=== PATIENT | male | born 1935 | race Caucasian/White ===

== ENCOUNTER 2020-03-22 14:50 | Inpatient (IN) | payer MEDICARE, OTHER ==
[~2020-03-22] VITALS: Ht 172.7 cm; Wt 57.1 kg
[~2020-03-22 14:50] MED LIST: DEXA6TAB6 PEG
[2020-03-22] MEDS ORDERED: methylPREDNISolone SOD SUCC PF 125 MG/2 ML VIAL. IV ONE (15:15)
[2020-03-22 15:24] LABS: BASO % 0 % (0-3); EOS % 0 % (0-3); HEMATOCRIT 23.2 % (39.0-53.0); HEMOGLOBIN 7.4 g/dL (13.0-17.5); LYMPH # 0.7 x10^3/uL (1.0-4.8); LYMPH % 6 % (24-48); MEAN CORPUSCULAR HEMOGLOBIN 32 pg (25-35); MEAN CORPUSCULAR HGB CONC 32 g/dL (31-37); MEAN CORPUSCULAR VOLUME 102 fL (79-100); MONO # 1.5 x10^3/uL (0.0-1.1); MONO % 13 % (0-9); NEUT # 9.7 x10^3/uL (1.8-7.7); NEUT % 81 % (31-73); PLATELET COUNT 89 x10^3/uL (140-400); RED BLOOD COUNT 2.28 x10^6/uL (4.30-5.70); WHITE BLOOD COUNT 11.9 x10^3/uL (4.0-11.0)
[2020-03-22] MEDS ORDERED: fentaNYL PF VIAL 100 MCG/2 ML VIAL IVP ONE ×2 (15:30→16:15)
--- NOTE | 2020-03-22 15:37 | PHYS DOC ---
General Adult EDM: Chief Complaint: SHORTNESS OF BREATH HPI: HPI: Patient is a 84 year old male who presents with here by EMS from a [facility] due to tachycardia, hypoxia, left hip pain. Patient was recently admitted to this facility on March 19, 2020 after being discharged from [facility] ICU approximately 3 days prior with Covid and hypoxia. Patient does have lung cancer. He states he did not have to wear oxygen before catching Covid. Patient is on 6 L of oxygen at 94%. Patient states at the facility has been using anywhere from 3 to 5 L of oxygen. EMS had stated that the patient was on 6 L of oxygen and only satting 89%. Patient's heart rate is 126 upon arrival. Patient speaks in short sentences due to being short of breath. He states he does not feel like he is more short of breath than usual. Patient is more concerned about his left hip pain that he states he has had since November. Patient states he is a full code and wants everything done if something were to happen to him. Patient does have a PEG tube. Patient's medical history is Covid, chronic pain, high cholesterol, diabetes. Review of Systems: Review of Systems: Constitutional: Denies fever or chills. [] Eyes: Denies change in visual acuity. [] HENT: Denies nasal congestion or sore throat. [] Respiratory: +cough or +shortness of breath. [] Cardiovascular: Denies chest pain or edema. [] GI: Denies abdominal pain, nausea, vomiting, bloody stools or diarrhea. [] : Denies dysuria. [] Musculoskeletal: Denies back pain. +left hip joint pain. [] Integument: Denies rash. [] Neurologic: Denies headache, focal weakness or sensory changes. [] Endocrine: Denies polyuria or polydipsia. [] Lymphatic: Denies swollen glands. [] Psychiatric: Denies depression or anxiety. [] Heart Score: Risk Factors: Risk Factors: DM, Current or recent (<one month) smoker, HTN, HLP, family history of CAD, obesity. Risk Scores: Score 0 - 3: 2.5% MACE over next 6 weeks - Discharge Home Score 4 - 6: 20.3% MACE over next 6 weeks - Admit for Clinical Observation Score 7 - 10: 72.7% MACE over next 6 weeks - Early Invasive Strategies Current Medications: Current Medications Medications (Trade) Dose Ordered Sig/Chaya Start Time Stop Time Status Last Admin Dose Admin Methylprednisolone Sodium Succinate (SOLU-Medrol 125MG VIAL) 80 mg 1X ONCE 03/22/20 15:15 03/22/20 15:16 UNV Physical Exam: PE: Constitutional: Well developed, mal-nourished, no acute distress, non-toxic appearance. [] HENT: Normocephalic, atraumatic, bilateral external ears normal, oropharynx moist, no oral exudates, nose normal. [] Eyes: PERRLA, EOMI, conjunctiva normal, no discharge. [] Neck: Normal range of motion, no tenderness, supple, no stridor. [] Cardiovascular:Heart rate regular rhythm, no murmur [] Lungs & Thorax: Bilateral breath sounds diminished throughout to auscultation [] Abdomen: Bowel sounds normal, soft, no tenderness, no masses, no pulsatile masses. [] Skin: Pale, warm, dry, no erythema, no rash. [] Back: No tenderness, no CVA tenderness. [] Extremities: No tenderness, no cyanosis, no clubbing, ROM intact, no edema. [] Neurologic: Alert and oriented X 3, normal motor function, normal sensory function, no focal deficits noted. [] Psychologic: Affect normal, judgement normal, mood normal. [] EKG: EK and read by Dr Lamb as Sinus Tachycardia, ventricular premature complexes and no STEMI Radiology/Procedures: Radiology/Procedures: [] Impression: [facility] [address] [place] [address] IMAGING REPORT Signed PATIENT: PANCHO CHOPRA ACCOUNT: [id number] : 1935 LOCATION: ER AGE: 84 SEX: M EXAM STATUS: REG ER ORD. PHYSICIAN: SANTIAGO AN APRN REASON: HYPOXIA PROCEDURE: PORTABLE CHEST 1V EXAM: Chest, single view. HISTORY: Hypoxia. COMPARISON: None. FINDINGS: A frontal view of the chest is obtained. There is diffuse increased interstitial opacity. There is mild elevation of the right hemidiaphragm. There is a suspected trace right pleural effusion. There is no pneumothorax. The heart is normal in size. There is a left PICC with the tip in the right atrium. IMPRESSION: 1. Diffuse interstitial infiltrate or chronic interstitial changes and suspected trace right pleural effusion. 2. Left PICC with the tip in the right atrium. Electronically signed by: Carina Nails MD (03/22/2020 3:51 PM) [id number] DICTATED and SIGNED BY: CARINA NAILS MD DATE: 03/22/20 [id number] [place] [address] IMAGING REPORT Signed PATIENT: PANCHO CHOPRA ACCOUNT: [id number] : 1935 LOCATION: ER AGE: 84 SEX: M EXAM STATUS: REG ER ORD. PHYSICIAN: SANTIAGO AN APRN REASON: PAIN PROCEDURE: HIP LEFT 2V WITH PELVIS EXAM: Pelvis and left hip, 3 views. HISTORY: Pain. COMPARISON: None. FINDINGS: A frontal view the pelvis and frontal and lateral views of the left hip are obtained. No displaced fracture is seen. There is lumbar sclerosis and degenerative change at the lower lumbar levels. There are right inguinal clips. There is gas and stool within the colon. There are vascular calcifications. The re are vascular clips within the left thigh. IMPRESSION: No acute osseous finding. Electronically signed by: Carina Nails MD (03/22/2020 3:50 PM) [email or web address] DICTATED and SIGNED BY: CARINA NAILS MD DATE: 03/22/20 [id number] [facility] [address] [place], [place] [id number] IMAGING REPORT Signed PATIENT: PANCHO CHOPRA ACCOUNT: [id number] : 1935 LOCATION: ER AGE: 84 SEX: M EXAM STATUS: REG ER ORD. PHYSICIAN: SANTIAGO AN APRN REASON: HYPOXIA, COVID, TACHYPNEA AND TACHYCARDIA PROCEDURE: CT ANGIOGRAPHY CHEST CT angiogram of the chest with contrast: Reason for examination: Hypoxia. Covid. Tachypnea and tachycardia. Helical images were obtained through the chest with intravenous administration of 100 cc Omnipaque 350 using PE protocol. 3-D MIPS reconstruction was performed in sagittal and coronal planes. Exposure: One or more of the following individualized dose reduction techniques were utilized for this examination: 1. Automated exposure control 2. A djustment of the mA and/or kV according to patient size 3. Use of iterative reconstruction technique. No abnormality seen at the thyroid gland. The trachea and mainstem bronchi show no intraluminal lesions. No abnormality seen at the esophagus. The thoracic aorta shows some arteriosclerotic vascular calcification but no aneurysmal dilatation or dissection is seen. The heart size is normal with no pericardial effusion. There is no evidence of pulmonary embolus. The lung sanders show emphysematous changes throughout both lung sanders. There are also mild patchy groundglass infiltrates bilaterally. No pneumothorax is seen. No abnormalities of seen at the visualized portions of the liver, spleen or adrenal glands. IMPRESSION: No evidence of pulmonary embolus. COPD. Diffuse mild patchy groundglass infiltrates bilaterally. Electronically signed by: Juliette Neri MD (03/22/2020 5:01 PM) [facility] DICTATED and SIGNED BY: JULIETTE NERI MD DATE: 03/22/20 [id number] Course & Med Decision Making: Course & Med Decision Making Pertinent Labs and Imaging studies reviewed. (See chart for details) COVID-19 CRITERIA: The patient was evaluated during the global COVID-19 pandemic, and that diagnosis was suspected/considered upon their initial presentation. Their evaluation, treatment and testing was consistent with current guidelines for patients who present with complaints or symptoms that may be related to COVID-19. See HPI. Alert and oriented x4. Skin is pale but warm and dry. No extremity edema. Lungs are very diminished throughout. Patient rates his left hip pain a 8 out of 10. He denies chest pain, nausea, vomiting, diarrhea, dizziness, syncope, headache, vision changes, focal weakness. Since I have nothing on the patient that tells me exactly when he was diagnosed with Covid I will do a rapid on him and a PCR. Patient is positive for Covid on a rapid screen. Patient will be admitted for hypoxia and pneumonia. [] Dragon Disclaimer: Dragon Disclaimer: This electronic medical record was generated, in whole or in part, using a voice recognition dictation system. COVID-19 Patient Risks: Age 65 or older: Yes Sign of co-morbidity: Yes Exp to person + for COVID: No Exp to PUI: Yes Travel from affected area: No Lower respiratory symptoms: Yes Fever: No Other: No PPE Use: Full PPE with N95 mask or PAPR: Yes Departure Departure Impression: Primary Impression: Hypoxia Additional Impressions: COVID-19 Pneumonia Qualified Codes: J18.9 - Pneumonia, unspecified organism Disposition: ADMITTED INPT THIS HOSP Admitting Physician: MIKAEL Condition: STABLE Referrals: BEKA MORALES DO (PCP) SANTIAGO AN LESSON INSTRUCTOR Mar 22, 2020 15:37
[2020-03-22 15:49] LABS: BASE EXCESS COOX 1 mmol/L (-3-3); HCO3 COOX 24 mmol/L (21-28); METHEMOGLOBIN 0.4 % (0.0-1.9); OXYHEMOGLOBIN 93.8 %; PCO2 COOX 33 mmHg (35-46); PO2 COOX 77 mmHg (65-108); SAT O2 COOX 95 % (92-99)
[2020-03-22 15:51] LABS: CALCIUM 8.6 mg/dL (8.5-10.1); CREATININE 0.9 mg/dL (0.7-1.3); POTASSIUM 4.4 mmol/L (3.5-5.1)
--- NOTE | 2020-03-22 15:52 | RAD ---
EXAM: Pelvis and left hip, 3 views. HISTORY: Pain. COMPARISON: None. FINDINGS: A frontal view the pelvis and frontal and lateral views of the left hip are obtained. No di splaced fracture is seen. There is lumbar sclerosis and degenerative change at the lower lumbar level s. There are right inguinal clips. There is gas and stool within the colon. There are vascular calcif ications. There are vascular clips within the left thigh. IMPRESSION: No acute osseous finding. Electronically signed by: Carina Maya MD (03/22/2020 3:50 PM) [email or web address]
--- NOTE | 2020-03-22 15:53 | RAD ---
EXAM: Chest, single view. HISTORY: Hypoxia. COMPARISON: None. FINDINGS: A frontal view of the chest is obtained. There is diffuse increased interstitial opacity. T here is mild elevation of the right hemidiaphragm. There is a suspected trace right pleural effusion. There is no pneumothorax. The heart is normal in size. There is a left PICC with the tip in the righ t atrium. IMPRESSION: 1. Diffuse interstitial infiltrate or chronic interstitial changes and suspected trace right pleural effusion. 2. Left PICC with the tip in the right atrium. Electronically signed by: Carina Maya MD (03/22/2020 3:51 PM) [email or web address]
[2020-03-22 15:55] LABS: ALBUMIN/GLOBULIN RATIO 0.6 (1.0-1.7); TOTAL BILIRUBIN 0.7 mg/dL (0.2-1.0); TOTAL PROTEIN 5.4 g/dL (6.4-8.2)
[2020-03-22 15:59] LABS: % BANDS 3 % (0-9); % BASOS 1 % (0-3); % LYMPHS 4 % (24-48); % METAS 2 % (0-0); % MONOS 12 % (0-10); % MYELOS 3 % (0-0); % SEGS 75 % (35-66); ANISOCYTOSIS MARKED; PLT ESTIMATE DECREASED (ADEQUATE); POIKILOCYTOSIS SLIGHT; POLYCHROMASIA PRESENT
[2020-03-22 16:00] LABS: OVALOCYTES FEW; SCHISTOCYTES OCC; TEAR DROP CELLS OCC
[2020-03-22] MEDS ORDERED: IV NORMAL SALINE 500ML BAG 500 ML IV ONE (16:15)
[2020-03-22] MEDS ORDERED: PIPERACILLIN/TAZOBACTAM 3.375 GM in IV NORMAL SALINE 50ML 50 ML IV ONE (16:15)
--- NOTE | 2020-03-22 16:29 | EKG ---
[facility] [address] [place] [address] Test Date: 2020-03-22 Test Time: 15:03:23 Pat Name: PANCHO CHOPRA Department: Room: Gender: M Help Desk Supervisor: : 1935 Requested By: SANTIAGO AN Order Number: [id number] Reading MD: Measurements Intervals [place] Rate: 126 P: 110 IA: 184 QRS: -38 QRSD: 72 T: 84 QT: 278 QTc: 409 Interpretive Statements SINUS TACHYCARDIA VENTRICULAR PREMATURE COMPLEX(ES) ABNORMAL LEFT AXIS DEVIATION QRS(T) CONTOUR ABNORMALITY CONSIDER ANTEROSEPTAL MYOCARDIAL DAMAGE T ABNORMALITY IN HIGH LATERAL LEADS ABNORMAL ECG RI6.02 No previous ECG available for comparison
[2020-03-22] MEDS ORDERED: IOHEXOL 350 MG/ML 100 ML VIAL. IV ONE (16:45)
[2020-03-22] MEDS ORDERED: CONTRAST GIVEN. MC PRN (16:45)
--- NOTE | 2020-03-22 17:04 | RAD ---
CT angiogram of the chest with contrast: Reason for examination: Hypoxia. Covid. Tachypnea and tachycardia. Helical images were obtained through the chest with intravenous administration of 100 cc Omnipaque 35 0 using PE protocol. 3-D MIPS reconstruction was performed in sagittal and coronal planes. Exposure: One or more of the following individualized dose reduction techniques were utilized for thi s examination: 1. Automated exposure control 2. Adjustment of the mA and/or kV according to patient size 3. Use of iterative reconstruction technique. No abnormality seen at the thyroid gland. The trachea and mainstem bronchi show no intraluminal lesio ns. No abnormality seen at the esophagus. The thoracic aorta shows some arteriosclerotic vascular dajuan cification but no aneurysmal dilatation or dissection is seen. The heart size is normal with no peric ardial effusion. There is no evidence of pulmonary embolus. The lung sanders show emphysematous change s throughout both lung sanders. There are also mild patchy groundglass infiltrates bilaterally. No pne umothorax is seen. No abnormalities of seen at the visualized portions of the liver, spleen or adrenal glands. IMPRESSION: No evidence of pulmonary embolus. COPD. Diffuse mild patchy groundglass infiltrates bilaterally. Electronically signed by: Renetta Miller MD (03/22/2020 5:01 PM) UDKE
[2020-03-22] MEDS: ACETAMINOPHEN 325 MG TABLET. PO ONE ×2 (18:30→18:40)
[2020-03-22] MEDS ORDERED: ACETAMINOPHEN 650 MG SUPP.RECT. ONE (20:04)
[2020-03-22] MEDS ORDERED: ACETAMINOPHEN 650 MG SUPP.RECT. PR ONE (20:15)
[2020-03-22 21:30] VITALS: BP 92/47
[2020-03-22 23:00] VITALS: BP 92/47
[2020-03-22] MEDS ORDERED: ACYC800T88 PEG (23:24)
[2020-03-22] MEDS ORDERED: EZET10TA20 PEG (23:24)
[2020-03-22] MEDS ORDERED: DOXA4TAB2 PEG (23:24)
[2020-03-22] MEDS ORDERED: MAGN250T10 PEG (23:24)
[2020-03-22] MEDS ORDERED: CILO100T PEG (23:24)
[2020-03-22] MEDS ORDERED: ACET500T68 PEG (23:24)
[2020-03-22] MEDS ORDERED: ONDA4TAB7 PEG (23:24)
[2020-03-22] MEDS ORDERED: METO25TA4 PEG (23:24)
[2020-03-22] MEDS ORDERED: ASPI-630 PEG (23:24)
[2020-03-22] MEDS ORDERED: SENN8.8S13 PEG (23:24)
[2020-03-22] MEDS ORDERED: ASCO500T3 PEG (23:24)
[2020-03-22] MEDS ORDERED: METH-38 PEG (23:24)
[2020-03-22] MEDS ORDERED: ALBU2.5V8 IH (23:24)
[2020-03-22] MEDS ORDERED: TRAZ-118 PEG (23:24)
[2020-03-22] MEDS ORDERED: ATOR20TA58 PEG (23:24)
[2020-03-22] MEDS ORDERED: CHOL400C PEG (23:24)
--- NOTE | 2020-03-22 23:55 | NUR ---
Patient arrived to unit at approx 2130 accompanied by MADHAV Figueredo. Patient resting comfortably on 5 L NC. Patient was discharged from on 03/19/20 to [facility] on 2-3 L NC. Patient has a G-Tube that he receives all meds and nutrition through- [facility] 1.5 3x per day with 250 Ml water flushes 5x per day. Patient gets extremely short of breath when attempting to talk, all medical history was obtained from [facility] paperwork that was sent with patient, Will follow up with patient in AM to confirm health history. Patient is COVID (+). Wound care consulted-patient has multiple wounds and bruises on extremities, Patient states that he fell out of his bed on 03/21/20 attempting to adjust his bed. Bed in low locked position, call light in reach, oriented patient to unit, reminded patient to call for assistance before ambulating. Will continue to monitor.
[2020-03-23] MEDS ORDERED: INFLUENZA VAX SCREEN BY RX. MC ONE (02:15)
[2020-03-23 02:55] VITALS: BP 109/55
--- NOTE | 2020-03-23 04:55 | NUR ---
Case management referral placed: Patient from [facility], states that he doesn't think he wants to return there, would rather be at home with his and HH if possible. Does want to be Full code and states that he doesn't think [facility] agree with him on this decision. Also states "i don't think they want me to come back there". Pt is currently getting Chemo from [facility] and his next treatment is scheduled for 04/11/20.
[2020-03-23 07:00] VITALS: BP 115/59
[2020-03-23] MEDS ORDERED: ALBUTEROL SULFATE 2.5 MG/3 ML NEBU. INH PRN (08:30)
[2020-03-23] MEDS ORDERED: FLU VACC QS 2020-21(6MOS+)/PF 0.5 ML SYRINGE. VAX IM ONE (09:00)
[2020-03-23] MEDS ORDERED: ONDANSETRON ODT 4 MG TAB.RAPDIS. PEG PRN (09:00)
--- NOTE | 2020-03-23 09:14 | HP ---
ADMIT DATE: 03/23/2020 CHIEF COMPLAINT: Shortness of breath. 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 He has a PEG tube because he also has cancer and he is scheduled to get chemotherapy again on 04/11/2020. Basically, he has had COVID-19 positive testing at his facility and he has been stable, but recently developed some hypoxia. He is now on 6 liters of oxygen. He actually was at [facility] recently as well for similar issues. He does have a history of lung cancer. Upon arrival, his oxygen saturation was 89% and his heart rate was 126. He was having a push of speech. I discussed the case with ER physician. We are going to admit the patient for COVID protocol and consult Pulmonary Medicine. I just discussed the case with Pulmonary nurse practitioner as well. PAST MEDICAL HISTORY: Lung cancer, COVID-19, arthritis, PEG tube, polypharmacy, shingles, asthma, GERD, hypertension, hyperlipidemia, BPH, insomnia. ALLERGIES: LEVAQUIN AND ADENOSINE. FAMILY HISTORY: Diabetes. 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 He does not drink, smoke or take drugs. I believe he quit smoking. MEDICATIONS: Reviewed, please refer to the MRAD. He is on 17. REVIEW OF SYSTEMS: GENERAL: No history of weight change, weakness or fevers. SKIN: No bruising, hair changes or rashes. EYES: No blurred, double or loss of vision. NOSE AND THROAT: No history of nosebleeds, hoarseness or sore throat. HEART: No history of palpitations, chest pain or shortness of breath on exertion. LUNGS: Denies cough, hemoptysis, wheezing. He complains of shortness of breath. GASTROINTESTINAL: Denies changes in appetite, nausea, vomiting, diarrhea or constipation. GENITOURINARY: No history of frequency, urgency, hesitancy or nocturia. NEUROLOGIC: Denies history of numbness, tingling, tremor or weakness. PSYCHIATRIC: No history of panic, anxiety or depression. ENDOCRINE: No history of heat or cold intolerance, polyuria or polydipsia. EXTREMITIES: Denies muscle weakness, joint pain, pain on walking or stiffness. PHYSICAL EXAMINATION: VITALS: Within normal limits and are stable. GENERAL: No apparent distress. Alert and oriented. HEENT: Normocephalic, atraumatic, external auditory canals are patent. EYES: Extraocular muscles are intact, pupils are equally round and reactive to light and accommodation. MUSCULOSKELETAL: Well developed, well nourished, good range of motion. ENDOCRINE: No thyromegaly was palpated. LYMPHATICS: No cervical chain or axillary nodes were noted. HEMATOPOIETIC: No bruising. NECK: Supple, no JVD, no thyromegaly was noted. LUNGS: He has bibasilar crackles. HEART: RRR, S1, S2 present. Peripheral pulses intact, no obvious murmurs were noted. ABDOMEN: He has a PEG tube in place. EXTREMITIES: Without any cyanosis, clubbing, or edema. Pedal pulses intact, Homans sign is negative. NEUROLOGIC: Normal speech, normal tone. A & O x 3, moves all extremities, no obvious focal deficits. PSYCHIATRIC: Normal affect, normal mood. Stable. SKIN: No ulcerations or rashes, good skin turgor, no jaundice. VASCULAR: Good capillary refill, neurovascular bundle appears to be intact. LABORATORY DATA: White count 12, hemoglobin 7.4, platelets 89. Electrolytes normal other than sodium of 135 and a BUN of 45. COVID-19 testing is positive. D-dimer is high at 1.45. ASSESSMENT AND PLAN: Respiratory failure, leukocytosis, anemia, thrombocytopenia, hyponatremia, azotemia, coagulopathy, hypoxia, and COVID-19 positive. The patient has been admitted to the Cardiac floor. We have consulted Pulmonary. I am going to go ahead and consult Hematology/Oncology and Nephrology as well. IV fluids. I have resumed his home meds, resumed his PEG feeds, COVID protocol. LONG-TERM PROGNOSIS: Guarded. CRISTOFER HARRIS DO DR: RAMIREZ/edith JOB#: [id number] / [id number]
[2020-03-23] MEDS: METHOCARBAMOL 750 MG TABLET PEG PRN (09:25)
[2020-03-23] MEDS: METOPROLOL TART IMMED RELEASE 25 MG TABLET. PEG SCH ×2 (09:25→22:06)
[2020-03-23] MEDS: MAGNESIUM OXIDE 400 MG TABLET PEG SCH ×2 (09:25→22:00)
[2020-03-23] MEDS: ASCORBIC ACID 500 MG TABLET PEG SCH ×2 (09:25→21:58)
[2020-03-23] MEDS: DOXAZOSIN MESYLATE 4 MG TABLET. PEG SCH (09:25)
[2020-03-23] MEDS: ASPIRIN CHEWABLE 81 MG TABLET. PEG SCH (09:25)
[2020-03-23] MEDS: DEXAMETHASONE 4 MG TABLET PEG SCH (09:26)
[2020-03-23] MEDS: ACYCLOVIR 200 MG CAPSULE. PEG SCH ×2 (09:26→22:01)
[2020-03-23] MEDS ORDERED: PIP/TAZO PER PHARMACY MC PRN (09:45)
--- NOTE | 2020-03-23 09:50 | CONS ---
DATE OF CONSULTATION: PULMONARY CONSULTATION ATTENDING PHYSICIAN: Dr. Hendrickson. REASON FOR CONSULTATION: Respiratory failure. HISTORY OF PRESENT ILLNESS: The patient is an 84-year-old male who has a long history of tobacco use. He has history of lung cancer and per history was diagnosed in 2007 for which he had a right lower lobectomy and had chemo. He was followed at , details of which are not available. He was brought into the hospital after he tested positive for COVID. He had some shortness of breath. He has a cough. The patient states that he is not on home oxygen. Currently, he is on 4 liters of oxygen. He has no nausea, vomiting, no diarrhea, no dysuria. No focal weakness. However, he appears to be hoarse. He had ABGs with a pH of 7.49, pCO2 of 33 and a pO2 of 77 on 40% FiO2. He had a CTA chest, which was reviewed by me. There is no evidence of pulmonary embolism. There are bilateral diffuse patchy ground-glass infiltrates. PAST MEDICAL HISTORY: History of lung cancer diagnosed in 2007. He said he had a right lower lobectomy and had chemo. Per H and P, he is also scheduled to have more chemo next month. History of PEG tube, history of COPD, hypertension, hyperlipidemia. ALLERGIES: LEVAQUIN AND ADENOSINE FAMILY HISTORY: Diabetes. 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 He does not drink. He had smoked for 30+ years. MEDICATIONS: Reviewed as listed in the MRAD. REVIEW OF SYSTEMS: Ten-point system obtained. Pertinent positives discussed in my history of present illness, otherwise noncontributory. All systems that were negative were reviewed as well. FAMILY HISTORY: Noncontributory to lungs. PHYSICAL EXAMINATION: VITAL SIGNS: Reviewed. He is afebrile, pulse ox 99% on 5 liters. NECK: Supple. LUNGS: With diminished breath sounds. CARDIOVASCULAR: With a regular rate. ABDOMEN: Soft. EXTREMITIES: With no pitting edema. LABORATORY DATA: Reviewed. BUN 45, creatinine 0.9. Albumin 2.0. D-dimer 1.45. White cell count 11.9, hemoglobin 7.4 and platelets are 89,000. IMPRESSION: 1. Acute hypoxic respiratory failure secondary to multifactorial etiologies including COVID-19 pneumonia and underlying chronic obstructive pulmonary disease. 2. History of lung cancer diagnosed in 2007 per patient's history. Treated with a right lower lobectomy and chemo. Apparently, he is also scheduled to have chemo next month at . No obvious tumor seen on the CT chest. He does have hoarseness and possibility of vocal cord paralysis is not excluded. 3. Anemia and thrombocytopenia. 4. Prerenal azotemia. 5. Severe protein-calorie malnutrition. RECOMMENDATIONS: 1. Continue present oxygen with gradual wean to keep sats 92 and above. 2. Empiric antibiotic, Zosyn. 3. Continue with steroids for COVID. 4. Bronchodilators. 5. DVT prophylaxis. 6. Discussed with RN and patient. Chart reviewed and imaging studies reviewed. KATY SALAS MD DR: KARLO/edith JOB#: [id number] / [id number]
[2020-03-23 11:00] VITALS: BP 92/43
--- NOTE | 2020-03-23 11:32 | NUR ---
SS following for discharge planning. SS reviewed pt chart and discussed with pt RN. Pt is a skilled rehabilitation resident from [facility], ; fax [phone]. COVID19 positive on 03/07/2020 per facility. COVID19 positive on most recent test. Pt is currently requiring oxygen at five liters nasal canula. Pt on IV Zosyn and has peg in place. Pt requesting to return to home with spouse and home healthcare if possible. Pt has chemotherapy appointment on 04/11/2020 at . PT/OT orders requested. SS will continue to follow for discharge planning.
[2020-03-23] MEDS: ENOXAPARIN 40 MG/0.4 ML SYRINGE. SQ SCH (11:38)
[2020-03-23] MEDS: PIPERACILLIN/TAZOBACTAM 3.375 GM in IV NORMAL SALINE 50ML 50 ML IV SCH ×2 (11:38→17:21)
--- NOTE | 2020-03-23 13:11 | PDOC2 ---
CONSULT Date of Consult Date of Consult DATE: 03/23/20 TIME: 13:02 Reason for Consult Reason for Consult: LOW NA Referring Physician Referring Physician: SUSAN Identification/Chief Complaint Chief Complaint SOB Source Source: Chart review, Patient History of Present Illness Reason for Visit: THIS IS AN 84 YR OLD WITH SOB. HX NOTABLE FOR LUNG CA WITH LOBECTOMY AND ONGOING CHEMOTHERAPY. IS NOW POS FOR COVID 19. RENAL CONSULT DUE TO A NA OF 135. CTA CHEST NEG. NO EXCESSIVE WATER INTAKE REPORTED. NOT ON ANY DIURETICS. NO EDEMA. LABS OTHERWISE NOTABLE FOR PANCYTOPENIA Past Medical History Cardiovascular: HTN, Hyperlipidemia Pulmonary: Other (SOB AND LUNG CA WITH LOBECTOMY) GI: Constipation Musculoskeletal: Weakness Renal/: No pertinent hx, Benign prostatic enlarg. Past Surgical History Past Surgical History LOBECTOMY ABOVE, Family History Family History: No Significant Social History Quit ALCOHOL: none Drugs: None Lives: with Family Current Problem List Problem List Problems Medical Problems: (1) COVID-19 Status: Acute (2) Hypoxia Status: Acute (3) Pneumonia Status: Acute Current Medications Current Medications Current Medications Methylprednisolone Sodium Succinate (SOLU-Medrol 125MG VIAL) 80 mg 1X ONCE IV Last administered on 03/22/20at 15:36; Start 03/22/20 at 15:15; Stop 03/22/20 at 15:30; Status DC Fentanyl Citrate (Fentanyl 2ml Vial) 25 mcg 1X ONCE IVP Last administered on 03/22/20at 15:36; Start 03/22/20 at 15:30; Stop 03/22/20 at 15:31; Status DC Sodium Chloride 500 ml @ 500 mls/hr 1X ONCE IV Last administered on 03/22/20at 16:23; Start 03/22/20 at 16:15; Stop 03/22/20 at 17:14; Status DC Piperacillin Sod/ Tazobactam Sod 3.375 gm/Sodium Chloride 50 ml @ 100 mls/hr 1X ONCE IV Last administered on 03/22/20at 17:08; Start 03/22/20 at 16:15; Stop 03/22/20 at 16:44; Status DC Fentanyl Citrate (Fentanyl 2ml Vial) 25 mcg 1X ONCE IVP Last administered on 03/22/20at 16:21; Start 03/22/20 at 16:15; Stop 03/22/20 at 16:16; Status DC Iohexol (Omnipaque 350 Mg/ml) 100 ml 1X ONCE IV Last administered on 03/22/20at 16:41; Start 03/22/20 at 16:45; Stop 03/22/20 at 16:46; Status DC Info (CONTRAST GIVEN -- Rx MONITORING) 1 each PRN DAILY PRN MC SEE COMMENTS; S tart 03/22/20 at 16:45; Stop 03/24/20 at 16:44 Acetaminophen (Tylenol) 650 mg 1X ONCE PO ; Start 03/22/20 at 18:30; Stop 03/22/20 at 18:31; Status DC Acetaminophen (Tylenol Supp) 650 mg STK-MED ONCE .ROUTE ; Start 03/22/20 at 20:04; Stop 03/22/20 at 20:04; Status DC Acetaminophen (Tylenol Supp) 650 mg 1X ONCE WA Last administered on 03/22/20at 20:10; Start 03/22/20 at 20:15; Stop 03/22/20 at 20:16; Status DC Info (FLU VACCINE SCREEN per RX) 1 each 1X ONCE MC ; Start 03/23/20 at 02:15; Stop 03/23/20 at 02:16; Status UNV Influenza Virus Vaccine Quadrival (Fluzone Quad Syringe) 0.5 ml ONCE ONCE VAX IM ; Start 03/23/20 at 09:00; Stop 03/23/20 at 09:01; Status DC Acetaminophen (Tylenol) 500 mg PRN Q6HRS PRN PO MILD PAIN 1-3; Start 03/23/20 at 08:30 Albuterol Sulfate (Ventolin Neb Soln) 2.5 mg PRN Q4HRS PRN INH wheezing; Start 03/23/20 at 08:30 Ascorbic Acid (Vitamin C) 500 mg BID PEG Last administered on 03/23/20at 09:25; Start 03/23/20 at 09:00 Aspirin (Aspirin Chewable) 81 mg DAILY PEG Last administered on 03/23/20at 09:25; Start 03/23/20 at 09:00 Atorvastatin Calcium (Lipitor) 20 mg HS PEG ; Start 03/23/20 at 21:00 Doxazosin Mesylate (Cardura) 4 mg DAILY PEG Last administered on 03/23/20at 09:25; Start 03/23/20 at 09:00 EZETIMIBE (Zetia) 10 mg QHS PO ; Start 03/23/20 at 21:00 Methocarbamol (Robaxin) 750 mg PRN Q4HRS PRN PEG PAIN Last administered on 03/23/20at 09:25; Start 03/23/20 at 08:30 Metoprolol Tartrate (Lopressor) 12.5 mg BID PEG Last administered on 03/23/20at 09:25; Start 03/23/20 at 09:00 Trazodone HCl (Desyrel) 25 mg HS PEG ; Start 03/23/20 at 21:00 Acyclovir (Zovirax) 800 mg Q12HR PEG Last administered on 03/23/20at 09:26; Start 03/23/20 at 10:00 Cilostazol (Pletal) 100 mg QHS PEG ; Start 03/23/20 at 21:00 Dexamethasone (Decadron) 6 mg DAILYWBKFT PEG Last administered on 03/23/20at 09:26; Start 03/23/20 at 09:00 Magnesium Oxide (Magnesium Oxide) 200 mg BID PEG Last administered on 03/23/20at 09:25; Start 03/23/20 at 09:00 Ondansetron HCl (Zofran Odt) 4 mg PRN Q4HRS PRN PEG NAUSEA/VOMITING; Start 03/23/20 at 09:00 Senna (Senna Oral Syrup) 352 mg QHS PEG ; Start 03/23/20 at 21:00 Piperacillin Sod/ Tazobactam Sod (Zosyn Per Pharmacy) 1 each PRN DAILY PRN MC SEE COMMENTS; Start 03/23/20 at 09:45 Enoxaparin Sodium (Lovenox 40mg Syringe) 40 mg Q24H SQ Last administered on 03/23/20at 11:38; Start 03/23/20 at 12:00 Piperacillin Sod/ Tazobactam Sod 3.375 gm/Sodium Chloride 50 ml @ 100 mls/hr Q6HRS IV Last administered on 03/23/20at 11:38; Start 03/23/20 at 12:00 Active Scripts Active Reported Acyclovir 800 Mg Tablet 800 Mg PEG Q12HR Zofran (Ondansetron Hcl) 4 Mg Tablet 4 Mg PEG PRN Q4HRS PRN Zetia (Ezetimibe) 10 Mg Tablet 10 Mg PEG QHS Ascorbic Acid 500 Mg Tablet Unknown Dose PEG BID Vitamin D3 (Cholecalciferol (Vitamin D3)) 10 Mcg Capsule Unknown Dose PEG DAILY Trazodone Hcl 50 Mg Tablet 25 Mg PEG HS Senna (Sennosides) 8.8 Mg/5 Ml Syrup 10 Ml PEG QHS 30 Days Robaxin-750 (Methocarbamol) 750 Mg Tablet 750 Mg PEG PRN Q4HRS PRN Metoprolol Tartrate 25 Mg Tablet 12.5 Mg PEG BID Magnesium (Magnesium Oxide) 250 Mg Tablet 250 Mg PEG BID Atorvastatin Calcium 20 Mg Tablet 20 Mg PEG HS Decadron (Dexamethasone) 6 Mg Tablet 6 Mg PEG DAILY 10 Days Cilostazol 100 Mg Tablet 100 Mg PEG QHS Cardura (Doxazosin Mesylate) 4 Mg Tablet 4 Mg PEG DAILY Aspirin 81 Mg Tab.chew 81 Mg PEG DAILY Proair Hfa Inhaler (Albuterol Sulfate) 8.5 Gm Hfa.aer.ad 2 Puff IH PRN Q4-6HRS PRN 21 Days Acetaminophen 500 Mg Tablet 500 Mg PEG PRN Q6HRS PRN Allergies Allergies: Coded Allergies: adenosine (Verified Allergy, Unknown, 03/22/20) levofloxacin (Verified Allergy, Unknown, 03/22/20) ROS General: YES: Fatigue, Malaise, Appetite PSYCHOLOGICAL ROS: YES: Anxiety Eyes: Yes Decreased vision HEENT: YES: Heacaches Respiratory: YES: Cough, Shortness of breath Gastrointestinal: Yes Constipation Genitourinary: YES Frequency Musculoskeletal: Yes Muscular Weakness Neurological: Yes Weakness Skin: Yes Dry Skin Physical Exam General: Alert, Cooperative, mild distress HEENT: Atraumatic, PERRLA Lungs: Other (DECREASE AIRFLOW) Heart: Regular rate Abdomen: Normal bowel sounds, Soft Extremities: No clubbing, No cyanosis Skin: No breakdown Neuro: Normal speech Psych/Mental Status: Mood NL, Other (FLAT AFFECT) MUSCULOSKELETAL: No joint tenderness, No deformity, No swelling Vitals VITALS Vital Signs Date Time Temp Pulse Resp B/P (MAP) Pulse Ox O2 Delivery O2 Flow Rate FiO2 03/23/20 11:00 97.4 89 22 92/43 (59) 100 Nasal Cannula 5.0 97.4 Labs Labs Laboratory Tests Test 03/22/20 14:58 03/22/20 15:50 03/22/20 16:25 White Blood Count 11.9 x10^3/uL (4.0-11.0) Red Blood Count 2.28 x10^6/uL (4.30-5.70) Hemoglobin 7.4 g/dL (13.0-17.5) Hematocrit 23.2 % (39.0-53.0) Mean Corpuscular Volume 102 fL (79-100) Mean Corpuscular Hemoglobin 32 pg (25-35) Mean Corpuscular Hemoglobin Concent 32 g/dL (31-37) Red Cell Distribution Width 30.0 % (11.5-14.5) Platelet Count 89 x10^3/uL (140-400) Neutrophils (%) (Auto) 81 % (31-73) Lymphocytes (%) (Auto) 6 % (24-48) Monocytes (%) (Auto) 13 % (0-9) Eosinophils (%) (Auto) 0 % (0-3) Basophils (%) (Auto) 0 % (0-3) Neutrophils # (Auto) 9.7 x10^3/uL (1.8-7.7) Lymphocytes # (Auto) 0.7 x10^3/uL (1.0-4.8) Monocytes # (Auto) 1.5 x10^3/uL (0.0-1.1) Eosinophils # (Auto) 0.0 x10^3/uL (0.0-0.7) Basophils # (Auto) 0.0 x10^3/uL (0.0-0.2) Segmented Neutrophils % 75 % (35-66) Band Neutrophils % 3 % (0-9) Lymphocytes % 4 % (24-48) Monocytes % 12 % (0-10) Basophils % 1 % (0-3) Metamyelocytes % 2 % (0-0) Myelocytes % 3 % (0-0) Platelet Estimate Decreased (ADEQUATE) Large Platelets Present Giant Platelets Present Polychromasia Present Poikilocytosis Slight Anisocytosis Marked Macrocytosis Slight Tear Drop Cells Occ Ovalocytes Few Schistocytes Occ D-Dimer (Sara) 1.45 ug/mlFEU (0.00-0.50) Sodium Level 135 mmol/L (136-145) Potassium Level 4.4 mmol/L (3.5-5.1) Chloride Level 102 mmol/L (98-107) Carbon Dioxide Level 25 mmol/L (21-32) Anion Gap 8 (6-14) Blood Urea Nitrogen 45 mg/dL (8-26) Creatinine 0.9 mg/dL (0.7-1.3) Estimated GFR (Cockcroft-Gault) 80.0 BUN/Creatinine Ratio 50 (6-20) Glucose Level 132 mg/dL (70-99) Lactic Acid Level 1.3 mmol/L (0.4-2.0) Calcium Level 8.6 mg/dL (8.5-10.1) Total Bilirubin 0.7 mg/dL (0.2-1.0) Aspartate Amino Transf (AST/SGOT) 37 U/L (15-37) Alanine Aminotransferase (ALT/SGPT) 59 U/L (16-63) Alkaline Phosphatase 115 U/L (46-116) Troponin I Quantitative 0.031 ng/mL (0.000-0.055) EB-Bll-Y-Type Natriuretic Peptide 1283 pg/mL (0-449) Total Protein 5.4 g/dL (6.4-8.2) Albumin 2.0 g/dL (3.4-5.0) Albumin/Globulin Ratio 0.6 (1.0-1.7) O2 Saturation 95 % (92-99) Arterial Blood pH 7.49 (7.35-7.45) Arterial Blood pCO2 at Patient Temp 33 mmHg (35-46) Arterial Blood pO2 at Patient Temp 77 mmHg (65-108) Arterial Blood HCO3 24 mmol/L (21-28) Arterial Blood Base Excess 1 mmol/L (-3-3) Oxyhemoglobin 93.8 % Methemoglobin 0.4 % (0.0-1.9) Carbon Monoxide, Quantitative 1.1 % (0.0-1.9) FiO2 40%/5lnc SARS-CoV-2 Antigen (Rapid) Positive (NEGATIVE) Laboratory Tests Test 03/22/20 14:58 03/22/20 15:50 03/22/20 16:25 White Blood Count 11.9 x10^3/uL (4.0-11.0) Red Blood Count 2.28 x10^6/uL (4.30-5.70) Hemoglobin 7.4 g/dL (13.0-17.5) Hematocrit 23.2 % (39.0-53.0) Mean Corpuscular Volume 102 fL (79-100) Mean Corpuscular Hemoglobin 32 pg (25-35) Mean Corpuscular Hemoglobin Concent 32 g/dL (31-37) Red Cell Distribution Width 30.0 % (11.5-14.5) Platelet Count 89 x10^3/uL (140-400) Neutrophils (%) (Auto) 81 % (31-73) Lymphocytes (%) (Auto) 6 % (24-48) Monocytes (%) (Auto) 13 % (0-9) Eosinophils (%) (Auto) 0 % (0-3) Basophils (%) (Auto) 0 % (0-3) Neutrophils # (Auto) 9.7 x10^3/uL (1.8-7.7) Lymphocytes # (Auto) 0.7 x10^3/uL (1.0-4.8) Monocytes # (Auto) 1.5 x10^3/uL (0.0-1.1) Eosinophils # (Auto) 0.0 x10^3/uL (0.0-0.7) Basophils # (Auto) 0.0 x10^3/uL (0.0-0.2) Segmented Neutrophils % 75 % (35-66) Band Neutrophils % 3 % (0-9) Lymphocytes % 4 % (24-48) Monocytes % 12 % (0-10) Basophils % 1 % (0-3) Metamyelocytes % 2 % (0-0) Myelocytes % 3 % (0-0) Platelet Estimate Decreased (ADEQUATE) Large Platelets Present Giant Platelets Present Polychromasia Present Poikilocytosis Slight Anisocytosis Marked Macrocytosis Slight Tear Drop Cells Occ Ovalocytes Few Schistocytes Occ D-Dimer (Sara) 1.45 ug/mlFEU (0.00-0.50) Sodium Level 135 mmol/L (136-145) Potassium Level 4.4 mmol/L (3.5-5.1) Chloride Level 102 mmol/L (98-107) Carbon Dioxide Level 25 mmol/L (21-32) Anion Gap 8 (6-14) Blood Urea Nitrogen 45 mg/dL (8-26) Creatinine 0.9 mg/dL (0.7-1.3) Estimated GFR (Cockcroft-Gault) 80.0 BUN/Creatinine Ratio 50 (6-20) Glucose Level 132 mg/dL (70-99) Lactic Acid Level 1.3 mmol/L (0.4-2.0) Calcium Level 8.6 mg/dL (8.5-10.1) Total Bilirubin 0.7 mg/dL (0.2-1.0) Aspartate Amino Transf (AST/SGOT) 37 U/L (15-37) Alanine Aminotransferase (ALT/SGPT) 59 U/L (16-63) Alkaline Phosphatase 115 U/L (46-116) Troponin I Quantitative 0.031 ng/mL (0.000-0.055) KX-Rzo-E-Type Natriuretic Peptide 1283 pg/mL (0-449) Total Protein 5.4 g/dL (6.4-8.2) Albumin 2.0 g/dL (3.4-5.0) Albumin/Globulin Ratio 0.6 (1.0-1.7) O2 Saturation 95 % (92-99) Arterial Blood pH 7.49 (7.35-7.45) Arterial Blood pCO2 at Patient Temp 33 mmHg (35-46) Arterial Blood pO2 at Patient Temp 77 mmHg (65-108) Arterial Blood HCO3 24 mmol/L (21-28) Arterial Blood Base Excess 1 mmol/L (-3-3) Oxyhemoglobin 93.8 % Methemoglobin 0.4 % (0.0-1.9) Carbon Monoxide, Quantitative 1.1 % (0.0-1.9) FiO2 40%/5lnc SARS-CoV-2 Antigen (Rapid) Positive (NEGATIVE) Images Images EXAM: Chest, single view. HISTORY: Hypoxia. COMPARISON: None. FINDINGS: A frontal view of the chest is obtained. There is diffuse increased interstitial opacity. There is mild elevation of the right hemidiaphragm. There is a suspected trace right pleural effusion. There is no pneumothorax. The heart is normal in size. There is a left PICC with the tip in the right atrium. IMPRESSION: 1. Diffuse interstitial infiltrate or chronic interstitial changes and suspected trace right pleural effusion. 2. Left PICC with the tip in the right atrium. Assessment/Plan Assessment/Plan IMP HYPONATREMIA-MOST LIKELY SIADH ELISSA-PRERENAL ACUTE HYPOXIC RESP FAILURE COVID 19 PNEUMONIA HX OF LUNG CA- S/P R LOWER LOBECTOMY AND CHEMO PANCYTOPENIA PLAN SALINE HYDRATION-LOW FLOW CHECK URINE LYTES AND OSM CHECK TSH CHECK S OSMO SUPPLEMENTAL O2 TX PER PULM WILL FOLLOW FIFI RANDOLPH MD Mar 23, 2020 13:11
[2020-03-23] MEDS: IV NORMAL SALINE 1000ML BAG 1,000 ML IV SCH (13:24)
--- NOTE | 2020-03-23 14:19 | PDOC2 ---
CONSULT Date of Consult Date of Consult DATE: 03/23/20 TIME: 14:05 Reason for Consult Reason for Consult: DLBCL on chemotherapy. Admitted with COVID-19 pneumonia Referring Physician Referring Physician: Dr. 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 Patient's medical history is pertinent for squamous cell carcinoma of the lung for which he received surgical resection and adjuvant chemotherapy in 2007. He was diagnosed with diffuse large B-cell lymphoma in December 2019 after presenting with a progressively enlarging neck mass. Core needle biopsy showed diffuse large B-cell lymphoma of non-GCB type. PET/CT on 01/11/2020 showed hypermetabolic lymph nodes in the right cervical, thoracic, abdominal lymph nodes as well as increased uptake in the lung, right adrenal gland and bone. 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 He began chemoimmunotherapy with R-CHOP with dose reduced anthracycline (50%) on 01/24/2020. He received cycle 2 of R-CHOP on 02/15/2020. He was subsequently hospitalized due to progressive generalized weakness, anemia. He was discharged and then readmitted on 03/07/2020 at [facility] due to acute respiratory failure due to COVID-19 pneumonia. He developed severe hypoxemia requiring up to 12 L of supplemental oxygen. Had a brief stay in the intensive care unit and after clinical improvement, he was discharged to longterm facility on 03/19/2020. Patient was found to have hypoxemia at longterm facility and was transferred to [facility] for further evaluation and management. Repeat COVID-19 test returned positive. He has been seen by pulmonology. Oncology consultation has been sought due to the patient's known history of lymphoma. Patient was awake, alert at the time of my visit. He reported significant shortness of breath, generalized weakness and cough. Past Medical History Cardiovascular: HTN, Hyperlipidemia Pulmonary: Other (SOB AND LUNG CA WITH LOBECTOMY) GI: Constipation Musculoskeletal: Weakness Renal/: No pertinent hx, Benign prostatic enlarg. Family History Family History: No Significant Social History Quit ALCOHOL: none Drugs: None Lives: with Family Current Problem List Problem List Problems Medical Problems: (1) COVID-19 Status: Acute (2) Hypoxia Status: Acute (3) Pneumonia Status: Acute Current Medications Current Medications Current Medications Methylprednisolone Sodium Succinate (SOLU-Medrol 125MG VIAL) 80 mg 1X ONCE IV Last administered on 03/22/20at 15:36; Start 03/22/20 at 15:15; Stop 03/22/20 at 15:30; Status DC Fentanyl Citrate (Fentanyl 2ml Vial) 25 mcg 1X ONCE IVP Last administered on 03/22/20at 15:36; Start 03/22/20 at 15:30; Stop 03/22/20 at 15:31; Status DC Sodium Chloride 500 ml @ 500 mls/hr 1X ONCE IV Last administered on 03/22/20at 16:23; Start 03/22/20 at 16:15; Stop 03/22/20 at 17:14; Status DC Piperacillin Sod/ Tazobactam Sod 3.375 gm/Sodium Chloride 50 ml @ 100 mls/hr 1X ONCE IV Last administered on 03/22/20at 17:08; Start 03/22/20 at 16:15; Stop 03/22/20 at 16:44; Status DC Fentanyl Citrate (Fentanyl 2ml Vial) 25 mcg 1X ONCE IVP Last administered on 03/22/20at 16:21; Start 03/22/20 at 16:15; Stop 03/22/20 at 16:16; Status DC Iohexol (Omnipaque 350 Mg/ml) 100 ml 1X ONCE IV Last administered on 03/22/20at 16:41; Start 03/22/20 at 16:45; Stop 03/22/20 at 16:46; Status DC Info (CONTRAST GIVEN -- Rx MONITORING) 1 each PRN DAILY PRN MC SEE COMMENTS; Start 03/22/20 at 16:45; Stop 03/24/20 at 16:44 Acetaminophen (Tylenol) 650 mg 1X ONCE PO ; Start 03/22/20 at 18:30; Stop 03/22/20 at 18:31; Status DC Acetaminophen (Tylenol Supp) 650 mg STK-MED ONCE .ROUTE ; Start 03/22/20 at 20:04; Stop 03/22/20 at 20:04; Status DC Acetaminophen (Tylenol Supp) 650 mg 1X ONCE HI Last administered on 03/22/20at 20:10; Start 03/22/20 at 20:15; Stop 03/22/20 at 20:16; Status DC Info (FLU VACCINE SCREEN per RX) 1 each 1X ONCE MC ; Start 03/23/20 at 02:15; Stop 03/23/20 at 02:16; Status UNV Influenza Virus Vaccine Quadrival (Fluzone Quad Syringe) 0.5 ml ONCE ONCE VAX IM ; Start 03/23/20 at 09:00; Stop 03/23/20 at 09:01; Status DC Acetaminophen (Tylenol) 500 mg PRN Q6HRS PRN PO MILD PAIN 1-3; Start 03/23/20 at 08:30 Albuterol Sulfate (Ventolin Neb Soln) 2.5 mg PRN Q4HRS PRN INH wheezing; Start 03/23/20 at 08:30 Ascorbic Acid (Vitamin C) 500 mg BID PEG Last administered on 03/23/20at 09:25; Start 03/23/20 at 09:00 Aspirin (Aspirin Chewable) 81 mg DAILY PEG Last administered on 03/23/20at 09:25; Start 03/23/20 at 09:00 Atorvastatin Calcium (Lipitor) 20 mg HS PEG ; Start 03/23/20 at 21:00 Doxazosin Mesylate (Cardura) 4 mg DAILY PEG Last administered on 03/23/20at 09:25; Start 03/23/20 at 09:00 EZETIMIBE (Zetia) 10 mg QHS PO ; Start 03/23/20 at 21:00 Methocarbamol (Robaxin) 750 mg PRN Q4HRS PRN PEG PAIN Last administered on 03/23/20at 09:25; Start 03/23/20 at 08:30 Metoprolol Tartrate (Lopressor) 12.5 mg BID PEG Last administered on 03/23/20at 09:25; Start 03/23/20 at 09:00 Trazodone HCl (Desyrel) 25 mg HS PEG ; Start 03/23/20 at 21:00 Acyclovir (Zovirax) 800 mg Q12HR PEG Last administered on 03/23/20at 09:26; Start 03/23/20 at 10:00 Cilostazol (Pletal) 100 mg QHS PEG ; Start 03/23/20 at 21:00 Dexamethasone (Decadron) 6 mg DAILYWBKFT PEG Last administered on 03/23/20at 09:26; Start 03/23/20 at 09:00 Magnesium Oxide (Magnesium Oxide) 200 mg BID PEG Last administered on 03/23/20at 09:25; Start 03/23/20 at 09:00 Ondansetron HCl (Zofran Odt) 4 mg PRN Q4HRS PRN PEG NAUSEA/VOMITING; Start 03/23/20 at 09:00 Senna (Senna Oral Syrup) 352 mg QHS PEG ; Start 03/23/20 at 21:00 Piperacillin Sod/ Tazobactam Sod (Zosyn Per Pharmacy) 1 each PRN DAILY PRN MC SEE COMMENTS; Start 03/23/20 at 09:45 Enoxaparin Sodium (Lovenox 40mg Syringe) 40 mg Q24H SQ Last administered on 03/23/20at 11:38; Start 03/23/20 at 12:00 Piperacillin Sod/ Tazobactam Sod 3.375 gm/Sodium Chloride 50 ml @ 100 mls/hr Q6HRS IV Last administered on 03/23/20at 11:38; Start 03/23/20 at 12:00 Sodium Chloride 1,000 ml @ 60 mls/hr [id number] IV Last administered on 03/23/20at 13:24; Start 03/23/20 at 13:30 Active Scripts Active Reported Acyclovir 800 Mg Tablet 800 Mg PEG Q12HR Zofran (Ondansetron Hcl) 4 Mg Tablet 4 Mg PEG PRN Q4HRS PRN Zetia (Ezetimibe) 10 Mg Tablet 10 Mg PEG QHS Ascorbic Acid 500 Mg Tablet Unknown Dose PEG BID Vitamin D3 (Cholecalciferol (Vitamin D3)) 10 Mcg Capsule Unknown Dose PEG DAILY Trazodone Hcl 50 Mg Tablet 25 Mg PEG HS Senna (Sennosides) 8.8 Mg/5 Ml Syrup 10 Ml PEG QHS 30 Days Robaxin-750 (Methocarbamol) 750 Mg Tablet 750 Mg PEG PRN Q4HRS PRN Metoprolol Tartrate 25 Mg Tablet 12.5 Mg PEG BID Magnesium (Magnesium Oxide) 250 Mg Tablet 250 Mg PEG BID Atorvastatin Calcium 20 Mg Tablet 20 Mg PEG HS Decadron (Dexamethasone) 6 Mg Tablet 6 Mg PEG DAILY 10 Days Cilostazol 100 Mg Tablet 100 Mg PEG QHS Cardura (Doxazosin Mesylate) 4 Mg Tablet 4 Mg PEG DAILY Aspirin 81 Mg Tab.chew 81 Mg PEG DAILY Proair Hfa Inhaler (Albuterol Sulfate) 8.5 Gm Hfa.aer.ad 2 Puff IH PRN Q4-6HRS PRN 21 Days Acetaminophen 500 Mg Tablet 500 Mg PEG PRN Q6HRS PRN Allergies Allergies: Coded Allergies: adenosine (Verified Allergy, Unknown, 03/22/20) levofloxacin (Verified Allergy, Unknown, 03/22/20) ROS General: YES: Fatigue PSYCHOLOGICAL ROS: No: Hallucinations, Irritablity Eyes: No Eye Pain, No Itchy Eyes HEENT: No: Oral lesions ALLERGY AND IMMUNOLOGY: YES: Nasal Congestion, Post Nasal Drip Hematological and Lymphatic: YES: Night Sweats ENDOCRINE: YES: Malaise/lethargy Respiratory: YES: Cough, Pleuritic Pain, Shortness of breath Cardiovascular: yes Chest Pain; No Edema Gastrointestinal: No Nausea, No Vomiting Genitourinary: No Dysuria, No Frequency Musculoskeletal: No Gait Disturbance, No Joint Pain Neurological: No Behavorial Changes, No Bowel/Bladder ControlChng Skin: No Dry Skin, No Eczema Physical Exam General: Alert, Oriented X3 HEENT: PERRLA Lungs: Clear to auscultation Heart: Regular rate Abdomen: Soft Extremities: No clubbing Skin: No rashes Neuro: Normal speech Psych/Mental Status: Mental status NL MUSCULOSKELETAL: No joint tenderness Vitals VITALS Vital Signs Date Time Temp Pulse Resp B/P (MAP) Pulse Ox O2 Delivery O2 Flow Rate FiO2 03/23/20 11:00 97.4 89 22 92/43 (59) 100 Nasal Cannula 5.0 97.4 Labs Labs Laboratory Tests Test 03/22/20 14:58 03/22/20 15:50 03/22/20 16:25 White Blood Count 11.9 x10^3/uL (4.0-11.0) Red Blood Count 2.28 x10^6/uL (4.30-5.70) Hemoglobin 7.4 g/dL (13.0-17.5) Hematocrit 23.2 % (39.0-53.0) Mean Corpuscular Volume 102 fL (79-100) Mean Corpuscular Hemoglobin 32 pg (25-35) Mean Corpuscular Hemoglobin Concent 32 g/dL (31-37) Red Cell Distribution Width 30.0 % (11.5-14.5) Platelet Count 89 x10^3/uL (140-400) Neutrophils (%) (Auto) 81 % (31-73) Lymphocytes (%) (Auto) 6 % (24-48) Monocytes (%) (Auto) 13 % (0-9) Eosinophils (%) (Auto) 0 % (0-3) Basophils (%) (Auto) 0 % (0-3) Neutrophils # (Auto) 9.7 x10^3/uL (1.8-7.7) Lymphocytes # (Auto) 0.7 x10^3/uL (1.0-4.8) Monocytes # (Auto) 1.5 x10^3/uL (0.0-1.1) Eosinophils # (Auto) 0.0 x10^3/uL (0.0-0.7) Basophils # (Auto) 0.0 x10^3/uL (0.0-0.2) Segmented Neutrophils % 75 % (35-66) Band Neutrophils % 3 % (0-9) Lymphocytes % 4 % (24-48) Monocytes % 12 % (0-10) Basophils % 1 % (0-3) Metamyelocytes % 2 % (0-0) Myelocytes % 3 % (0-0) Platelet Estimate Decreased (ADEQUATE) Large Platelets Present Giant Platelets Present Polychromasia Present Poikilocytosis Slight Anisocytosis Marked Macrocytosis Slight Tear Drop Cells Occ Ovalocytes Few Schistocytes Occ D-Dimer (Sara) 1.45 ug/mlFEU (0.00-0.50) Sodium Level 135 mmol/L (136-145) Potassium Level 4.4 mmol/L (3.5-5.1) Chloride Level 102 mmol/L (98-107) Carbon Dioxide Level 25 mmol/L (21-32) Anion Gap 8 (6-14) Blood Urea Nitrogen 45 mg/dL (8-26) Creatinine 0.9 mg/dL (0.7-1.3) Estimated GFR (Cockcroft-Gault) 80.0 BUN/Creatinine Ratio 50 (6-20) Glucose Level 132 mg/dL (70-99) Lactic Acid Level 1.3 mmol/L (0.4-2.0) Calcium Level 8.6 mg/dL (8.5-10.1) Total Bilirubin 0.7 mg/dL (0.2-1.0) Aspartate Amino Transf (AST/SGOT) 37 U/L (15-37) Alanine Aminotransferase (ALT/SGPT) 59 U/L (16-63) Alkaline Phosphatase 115 U/L (46-116) Troponin I Quantitative 0.031 ng/mL (0.000-0.055) RR-Sia-J-Type Natriuretic Peptide 1283 pg/mL (0-449) Total Protein 5.4 g/dL (6.4-8.2) Albumin 2.0 g/dL (3.4-5.0) Albumin/Globulin Ratio 0.6 (1.0-1.7) O2 Saturation 95 % (92-99) Arterial Blood pH 7.49 (7.35-7.45) Arterial Blood pCO2 at Patient Temp 33 mmHg (35-46) Arterial Blood pO2 at Patient Temp 77 mmHg (65-108) Arterial Blood HCO3 24 mmol/L (21-28) Arterial Blood Base Excess 1 mmol/L (-3-3) Oxyhemoglobin 93.8 % Methemoglobin 0.4 % (0.0-1.9) Carbon Monoxide, Quantitative 1.1 % (0.0-1.9) FiO2 40%/5lnc SARS-CoV-2 Antigen (Rapid) Positive (NEGATIVE) Laboratory Tests Test 03/22/20 14:58 03/22/20 15:50 03/22/20 16:25 White Blood Count 11.9 x10^3/uL (4.0-11.0) Red Blood Count 2.28 x10^6/uL (4.30-5.70) Hemoglobin 7.4 g/dL (13.0-17.5) Hematocrit 23.2 % (39.0-53.0) Mean Corpuscular Volume 102 fL (79-100) Mean Corpuscular Hemoglobin 32 pg (25-35) Mean Corpuscular Hemoglobin Concent 32 g/dL (31-37) Red Cell Distribution Width 30.0 % (11.5-14.5) Platelet Count 89 x10^3/uL (140-400) Neutrophils (%) (Auto) 81 % (31-73) Lymphocytes (%) (Auto) 6 % (24-48) Monocytes (%) (Auto) 13 % (0-9) Eosinophils (%) (Auto) 0 % (0-3) Basophils (%) (Auto) 0 % (0-3) Neutrophils # (Auto) 9.7 x10^3/uL (1.8-7.7) Lymphocytes # (Auto) 0.7 x10^3/uL (1.0-4.8) Monocytes # (Auto) 1.5 x10^3/uL (0.0-1.1) Eosinophils # (Auto) 0.0 x10^3/uL (0.0-0.7) Basophils # (Auto) 0.0 x10^3/uL (0.0-0.2) Segmented Neutrophils % 75 % (35-66) Band Neutrophils % 3 % (0-9) Lymphocytes % 4 % (24-48) Monocytes % 12 % (0-10) Basophils % 1 % (0-3) Metamyelocytes % 2 % (0-0) Myelocytes % 3 % (0-0) Platelet Estimate Decreased (ADEQUATE) Large Platelets Present Giant Platelets Present Polychromasia Present Poikilocytosis Slight Anisocytosis Marked Macrocytosis Slight Tear Drop Cells Occ Ovalocytes Few Schistocytes Occ D-Dimer (Sara) 1.45 ug/mlFEU (0.00-0.50) Sodium Level 135 mmol/L (136-145) Potassium Level 4.4 mmol/L (3.5-5.1) Chloride Level 102 mmol/L (98-107) Carbon Dioxide Level 25 mmol/L (21-32) Anion Gap 8 (6-14) Blood Urea Nitrogen 45 mg/dL (8-26) Creatinine 0.9 mg/dL (0.7-1.3) Estimated GFR (Cockcroft-Gault) 80.0 BUN/Creatinine Ratio 50 (6-20) Glucose Level 132 mg/dL (70-99) Lactic Acid Level 1.3 mmol/L (0.4-2.0) Calcium Level 8.6 mg/dL (8.5-10.1) Total Bilirubin 0.7 mg/dL (0.2-1.0) Aspartate Amino Transf (AST/SGOT) 37 U/L (15-37) Alanine Aminotransferase (ALT/SGPT) 59 U/L (16-63) Alkaline Phosphatase 115 U/L (46-116) Troponin I Quantitative 0.031 ng/mL (0.000-0.055) GE-Xxg-C-Type Natriuretic Peptide 1283 pg/mL (0-449) Total Protein 5.4 g/dL (6.4-8.2) Albumin 2.0 g/dL (3.4-5.0) Albumin/Globulin Ratio 0.6 (1.0-1.7) O2 Saturation 95 % (92-99) Arterial Blood pH 7.49 (7.35-7.45) Arterial Blood pCO2 at Patient Temp 33 mmHg (35-46) Arterial Blood pO2 at Patient Temp 77 mmHg (65-108) Arterial Blood HCO3 24 mmol/L (21-28) Arterial Blood Base Excess 1 mmol/L (-3-3) Oxyhemoglobin 93.8 % Methemoglobin 0.4 % (0.0-1.9) Carbon Monoxide, Quantitative 1.1 % (0.0-1.9) FiO2 40%/5lnc SARS-CoV-2 Antigen (Rapid) Positive (NEGATIVE) Assessment/Plan Assessment/Plan Assessment: Diffuse large B-cell lymphoma, stage IV, non-GCB subtype, s/p 2 cycles of R- CHOP, last treated on 02/15/2020 Acute hypoxic respiratory failure COVID-19 pneumonia Pancytopenia, multifactorial: Secondary to chronic disease, antineoplastic chemotherapy, diffuse large B-cell lymphoma History of lung cancer Recommendations: -Continue supportive care for COVID-19 pneumonia -Steroids and antibiotics per pulmonology service -Would not recommend additional chemotherapy at this time given his clinical status -We will continue to follow during hospital stay -Given significant decline in his health over the past few weeks in the setting of unknown aggressive DLBCL, may consider hospice if clinical status does not improve significantly. -Rest per primary service Quinn Oliveira MD Medical Oncology/Hematology Ph: [phone] DELIO OLIVEIRA MD Mar 23, 2020 14:19
[2020-03-23 15:00] VITALS: BP 98/50
--- NOTE | 2020-03-23 15:35 | NUR ---
Wound Care Wound Type/Assessment: Consult to eval and treat for multiple wounds present on admission. L heel red and blanchable. R elbow skin tear margins have dried blood, wound bed bright red without slough. L ear has dry intact scabs. R ear crease has ST II with DTI, pink wound bed with pink and purple margins. Sacrum is intact with large area of blanchable redness and a small STII with DTI observed in intergluteal cleft. Wound bed pink, with dry peeling margins. No other open areas noted on head to toe assessment. Treatment Recommendations/Plan: L heel foam for protection. R elbow: Cleanse and dry. Cover with xeroform and foam. Change every 2-3 days Sacrum: Cleanse and pat dry. Cover open wound with small piece of xeroform, and cover entire reddened area with sacral foam dressing. Change every 2-3 days. L and R ears: Ensure foam on O2 tubing is in the correct position. Apply skin prep daily. Education provided: Turn often to prevent skin breakdown. Offloading surface/device: P500 bed. Pt declined heel medix boots d/t reduced independence with mobility. Recommended Referrals/Tests: NA Discharge Recommendations for dressings: as above
[2020-03-23 19:50] VITALS: BP 98/50
[2020-03-23] MEDS: SENNA LEAF EXTRACT 528 MG/15 ML ORAL SYRUP. PEG SCH (21:00)
[2020-03-23] MEDS: CILOSTAZOL 50 MG TABLET. PEG SCH (21:58)
[2020-03-23] MEDS: ATORVASTATIN CALCIUM 20 MG TABLET PEG SCH (21:59)
[2020-03-23] MEDS: traZODone 50 MG TABLET. PEG SCH (21:59)
[2020-03-23] MEDS: EZETIMIBE 10 MG TABLET. PO SCH (21:59)
[2020-03-23 22:15] VITALS: BP 111/57
[2020-03-24] MEDS: PIPERACILLIN/TAZOBACTAM 3.375 GM in IV NORMAL SALINE 50ML 50 ML IV SCH ×5 (00:07→23:34)
[2020-03-24 03:45] VITALS: BP 103/40
[2020-03-24] MEDS: IV NORMAL SALINE 1000ML BAG 1,000 ML IV SCH (05:07)
[2020-03-24 07:00] VITALS: BP 114/53
[2020-03-24 07:41] LABS: CALCIUM 8.8 mg/dL (8.5-10.1); CREATININE 0.8 mg/dL (0.7-1.3); GFR 91.7; MAGNESIUM 2.2 mg/dL (1.8-2.4); PHOSPHORUS 3.1 mg/dL (2.6-4.7); POTASSIUM 3.9 mmol/L (3.5-5.1)
[2020-03-24] MEDS: ASCORBIC ACID 500 MG TABLET PEG SCH ×2 (08:57→20:21)
[2020-03-24] MEDS: DEXAMETHASONE 4 MG TABLET PEG SCH (08:57)
[2020-03-24] MEDS: ACYCLOVIR 200 MG CAPSULE. PEG SCH ×2 (08:57→20:22)
[2020-03-24] MEDS: DOXAZOSIN MESYLATE 4 MG TABLET. PEG SCH (08:57)
[2020-03-24] MEDS: ASPIRIN CHEWABLE 81 MG TABLET. PEG SCH (08:57)
[2020-03-24] MEDS: METOPROLOL TART IMMED RELEASE 25 MG TABLET. PEG SCH ×2 (08:58→22:38)
[2020-03-24] MEDS: MAGNESIUM OXIDE 400 MG TABLET PEG SCH ×2 (08:58→20:22)
[2020-03-24] MEDS: METHOCARBAMOL 750 MG TABLET PEG PRN (08:58)
--- NOTE | 2020-03-24 10:40 | PDOC ---
PULMONARY PROGRESS NOTES DATE: 03/24/20 TIME: 10:36 Subjective Patient is resting on 5 L nasal cannula Reports chills and cough Denies shortness of breath Vitals Vital Signs Date Time Temp Pulse Resp B/P (MAP) Pulse Ox O2 Delivery O2 Flow Rate FiO2 03/24/20 08:58 83 114/53 03/24/20 08:00 Nasal Cannula 5.0 03/24/20 07:00 96.8 18 96 96.8 Comments Patient is seen during COVID- pandemic, visual exam performed On nasal cannula oxygen Regular rate and rhythm No obvious edema or rash No respiratory distress Labs Laboratory Tests Test 03/22/20 14:58 03/22/20 15:50 03/22/20 16:25 03/24/20 06:52 White Blood Count 11.9 x10^3/uL (4.0-11.0) Red Blood Count 2.28 x10^6/uL (4.30-5.70) Hemoglobin 7.4 g/dL (13.0-17.5) Hematocrit 23.2 % (39.0-53.0) Mean Corpuscular Volume 102 fL (79-100) Mean Corpuscular Hemoglobin 32 pg (25-35) Mean Corpuscular Hemoglobin Concent 32 g/dL (31-37) Red Cell Distribution Width 30.0 % (11.5-14.5) Platelet Count 89 x10^3/uL (140-400) Neutrophils (%) (Auto) 81 % (31-73) Lymphocytes (%) (Auto) 6 % (24-48) Monocytes (%) (Auto) 13 % (0-9) Eosinophils (%) (Auto) 0 % (0-3) Basophils (%) (Auto) 0 % (0-3) Neutrophils # (Auto) 9.7 x10^3/uL (1.8-7.7) Lymphocytes # (Auto) 0.7 x10^3/uL (1.0-4.8) Monocytes # (Auto) 1.5 x10^3/uL (0.0-1.1) Eosinophils # (Auto) 0.0 x10^3/uL (0.0-0.7) Basophils # (Auto) 0.0 x10^3/uL (0.0-0.2) Segmented Neutrophils % 75 % (35-66) Band Neutrophils % 3 % (0-9) Lymphocytes % 4 % (24-48) Monocytes % 12 % (0-10) Basophils % 1 % (0-3) Metamyelocytes % 2 % (0-0) Myelocytes % 3 % (0-0) Platelet Estimate Decreased (ADEQUATE) Large Platelets Present Giant Platelets Present Polychromasia Present Poikilocytosis Slight Anisocytosis Marked Macrocytosis Slight Tear Drop Cells Occ Ovalocytes Few Schistocytes Occ D-Dimer (Sara) 1.45 ug/mlFEU (0.00-0.50) Sodium Level 135 mmol/L (136-145) 140 mmol/L (136-145) Potassium Level 4.4 mmol/L (3.5-5.1) 3.9 mmol/L (3.5-5.1) Chloride Level 102 mmol/L (98-107) 108 mmol/L (98-107) Carbon Dioxide Level 25 mmol/L (21-32) 26 mmol/L (21-32) Anion Gap 8 (6-14) 6 (6-14) Blood Urea Nitrogen 45 mg/dL (8-26) 31 mg/dL (8-26) Creatinine 0.9 mg/dL (0.7-1.3) 0.8 mg/dL (0.7-1.3) Estimated GFR (Cockcroft-Gault) 80.0 91.7 BUN/Creatinine Ratio 50 (6-20) Glucose Level 132 mg/dL (70-99) 80 mg/dL (70-99) Lactic Acid Level 1.3 mmol/L (0.4-2.0) Calcium Level 8.6 mg/dL (8.5-10.1) 8.8 mg/dL (8.5-10.1) Total Bilirubin 0.7 mg/dL (0.2-1.0) Aspartate Amino Transf (AST/SGOT) 37 U/L (15-37) Alanine Aminotransferase (ALT/SGPT) 59 U/L (16-63) Alkaline Phosphatase 115 U/L (46-116) Troponin I Quantitative 0.031 ng/mL (0.000-0.055) AQ-Ilq-W-Type Natriuretic Peptide 1283 pg/mL (0-449) Total Protein 5.4 g/dL (6.4-8.2) Albumin 2.0 g/dL (3.4-5.0) Albumin/Globulin Ratio 0.6 (1.0-1.7) O2 Saturation 95 % (92-99) Arterial Blood pH 7.49 (7.35-7.45) Arterial Blood pCO2 at Patient Temp 33 mmHg (35-46) Arterial Blood pO2 at Patient Temp 77 mmHg (65-108) Arterial Blood HCO3 24 mmol/L (21-28) Arterial Blood Base Excess 1 mmol/L (-3-3) Oxyhemoglobin 93.8 % Methemoglobin 0.4 % (0.0-1.9) Carbon Monoxide, Quantitative 1.1 % (0.0-1.9) FiO2 40%/5lnc SARS-CoV-2 Antigen (Rapid) Positive (NEGATIVE) Phosphorus Level 3.1 mg/dL (2.6-4.7) Magnesium Level 2.2 mg/dL (1.8-2.4) Laboratory Tests Test 03/24/20 06:52 Sodium Level 140 mmol/L (136-145) Potassium Level 3.9 mmol/L (3.5-5.1) Chloride Level 108 mmol/L (98-107) Carbon Dioxide Level 26 mmol/L (21-32) Anion Gap 6 (6-14) Blood Urea Nitrogen 31 mg/dL (8-26) Creatinine 0.8 mg/dL (0.7-1.3) Estimated GFR (Cockcroft-Gault) 91.7 Glucose Level 80 mg/dL (70-99) Calcium Level 8.8 mg/dL (8.5-10.1) Phosphorus Level 3.1 mg/dL (2.6-4.7) Magnesium Level 2.2 mg/dL (1.8-2.4) Medications Active Scripts Medications Dose Route/Sig Max Daily Dose Days Date Category Acyclovir 800 Mg Tablet 800 Mg PEG Q12HR 03/22/20 Reported Zofran (Ondansetron Hcl) 4 Mg Tablet 4 Mg PEG PRN Q4HRS PRN 03/22/20 Reported Zetia (Ezetimibe) 10 Mg Tablet 10 Mg PEG QHS 03/22/20 Reported Ascorbic Acid 500 Mg Tablet Unknown Dose PEG BID 03/22/20 Reported Vitamin D3 (Cholecalciferol (Vitamin D3)) 10 Mcg Capsule Unknown Dose PEG DAILY 03/22/20 Reported Trazodone Hcl 50 Mg Tablet 25 Mg PEG HS 03/22/20 Reported Senna (Sennosides) 8.8 Mg/5 Ml Syrup 10 Ml PEG QHS 30 03/22/20 Reported Robaxin-750 (Methocarbamol) 750 Mg Tablet 750 Mg PEG PRN Q4HRS PRN 03/22/20 Reported Metoprolol Tartrate 25 Mg Tablet 12.5 Mg PEG BID 03/22/20 Reported Magnesium (Magnesium Oxide) 250 Mg Tablet 250 Mg PEG BID 03/22/20 Reported Atorvastatin Calcium 20 Mg Tablet 20 Mg PEG HS 03/22/20 Reported Decadron (Dexamethasone) 6 Mg Tablet 6 Mg PEG DAILY 10 03/22/20 Reported Cilostazol 100 Mg Tablet 100 Mg PEG QHS 03/22/20 Reported Cardura (Doxazosin Mesylate) 4 Mg Tablet 4 Mg PEG DAILY 03/22/20 Reported Aspirin 81 Mg Tab.chew 81 Mg PEG DAILY 03/22/20 Reported Proair Hfa Inhaler (Albuterol Sulfate) 8.5 Gm Hfa.aer.ad 2 Puff IH PRN Q4-6HRS PRN 21 03/22/20 Reported Acetaminophen 500 Mg Tablet 500 Mg PEG PRN Q6HRS PRN 03/22/20 Reported Comments CTA IMPRESSION: No evidence of pulmonary embolus. COPD. Diffuse mild patchy groundglass infiltrates bilaterally. Impression . IMPRESSION: 1. Acute hypoxic respiratory failure secondary to multifactorial etiologies including COVID-19 pneumonia and underlying chronic obstructive pulmonary disease. 2. History of lung cancer diagnosed in 2007 per patient's history. Treated with a right lower lobectomy and chemo. Apparently, he is also scheduled to have chemo next month at . No obvious tumor seen on the CT chest. He does have hoarseness and possibility of vocal cord paralysis is not excluded. 3. Anemia and thrombocytopenia. 4. Prerenal azotemia. 5. Severe protein-calorie malnutrition. Plan . RECOMMENDATIONS: 1. Continue present oxygen with gradual wean to keep sats 92 and above. 2. Empiric antibiotic, Zosyn. 3. Continue with steroids for COVID, will need full 10-day course 4. Bronchodilators. 5. DVT prophylaxis. 6. Symptomatic treatment of cough Discussed with KATY LEMOS MD Mar 24, 2020 10:40
[2020-03-24 11:00] VITALS: BP 95/42
[2020-03-24] MEDS: ENOXAPARIN 40 MG/0.4 ML SYRINGE. SQ SCH (11:13)
--- NOTE | 2020-03-24 11:18 | PDOC ---
[employer] PROGRESS NOTE Date of Service DOS: DATE: 03/24/20 TIME: 11:14 Chief Complaint Chief Complaint CC: Shortness of breath History of Present Illness History of Present Illness 03/24/2020 -Patient seen and examined -WILEY RN -Chart reviewed Vitals/I&O Vitals/I&O: Vital Signs Date Time Temp Pulse Resp B/P (MAP) Pulse Ox O2 Delivery O2 Flow Rate FiO2 03/24/20 08:58 83 114/53 03/24/20 08:00 Nasal Cannula 5.0 03/24/20 07:00 96.8 18 96 96.8 I & O 03/23/20 03/23/20 03/24/20 15:00 23:00 07:00 Intake Total 0 ml 210 ml 0 ml Balance 0 ml 210 ml 0 ml Physical Exam General: Alert, Oriented X3 Heart: Regular rate Lungs: Clear Abdomen: Normal bowel sounds, Soft, No tenderness, No hepatosplenomegaly Extremities: No clubbing, No cyanosis, No edema Skin: No rashes, No significant lesion Labs Labs: Laboratory Tests Test 03/24/20 06:52 Sodium Level 140 mmol/L (136-145) Potassium Level 3.9 mmol/L (3.5-5.1) Chloride Level 108 mmol/L (98-107) Carbon Dioxide Level 26 mmol/L (21-32) Anion Gap 6 (6-14) Blood Urea Nitrogen 31 mg/dL (8-26) Creatinine 0.8 mg/dL (0.7-1.3) Estimated GFR (Cockcroft-Gault) 91.7 Glucose Level 80 mg/dL (70-99) Calcium Level 8.8 mg/dL (8.5-10.1) Phosphorus Level 3.1 mg/dL (2.6-4.7) Magnesium Level 2.2 mg/dL (1.8-2.4) Review of Systems Review of Systems: No clubbing, no ecchymosis Assessment and Plan Assessmemt and Plan Problems Medical Problems: (1) COVID-19 Status: Acute (2) Hypoxia Status: Acute (3) Pneumonia Status: Acute 03/24/2020 A: COVID + Hypoxia Pneumonia P: COVID protocol 5L O2 IV Zosyn Not using remdesivir, as this was already given at DVT prophylaxis Home meds Comment Review of Relevant I have reviewed the following items stephie (where applicable) has been applied. Medications: Current Medications Medications (Trade) Dose Ordered Sig/Chaya Route PRN Reason Start Time Stop Time Status Last Admin Dose Admin Atorvastatin Calcium (Lipitor) 20 mg HS PEG 03/23/20 21:00 03/23/20 21:59 EZETIMIBE (Zetia) 10 mg QHS PO 03/23/20 21:00 03/23/20 21:59 Trazodone HCl (Desyrel) 25 mg HS PEG 03/23/20 21:00 03/23/20 21:59 Cilostazol (Pletal) 100 mg QHS PEG 03/23/20 21:00 03/23/20 21:58 Enoxaparin Sodium (Lovenox 40mg Syringe) 40 mg Q24H SQ 03/23/20 12:00 03/24/20 11:13 Piperacillin Sod/ Tazobactam Sod 3.375 gm/Sodium Chloride 50 ml @ 100 mls/hr Q6HRS IV 03/23/20 12:00 03/24/20 11:11 Sodium Chloride 1,000 ml @ 60 mls/hr [id number] IV 03/23/20 13:30 03/24/20 05:07 Justifications for Admission Other Justification CRISTOFER HARRIS III DO Mar 24, 2020 11:18
--- NOTE | 2020-03-24 11:57 | PDOC ---
Renal-Progress Notes Subjective Notes Notes NO NEW COMPLAINTS History of Present Illness Hx of present illness STABLE Vitals Vitals Vital Signs Date Time Temp Pulse Resp B/P (MAP) Pulse Ox O2 Delivery O2 Flow Rate FiO2 03/24/20 08:58 83 114/53 03/24/20 08:00 Nasal Cannula 5.0 03/24/20 07:00 96.8 18 96 96.8 Weight Weight [ ] I.O. Intake and Output Intake and Output 03/24/20 07:00 Intake Total 210 ml Balance 210 ml Intake Oral 0 ml Tube Feeding 210 ml # Voids 7 # Bowel Movements 8 Labs Labs Laboratory Tests Test 03/24/20 06:52 Sodium Level 140 mmol/L (136-145) Potassium Level 3.9 mmol/L (3.5-5.1) Chloride Level 108 mmol/L (98-107) Carbon Dioxide Level 26 mmol/L (21-32) Anion Gap 6 (6-14) Blood Urea Nitrogen 31 mg/dL (8-26) Creatinine 0.8 mg/dL (0.7-1.3) Estimated GFR (Cockcroft-Gault) 91.7 Glucose Level 80 mg/dL (70-99) Calcium Level 8.8 mg/dL (8.5-10.1) Phosphorus Level 3.1 mg/dL (2.6-4.7) Magnesium Level 2.2 mg/dL (1.8-2.4) Micro Micro Microbiology 03/22/20 Blood Culture - Preliminary, Resulted NO GROWTH AFTER 1 DAY Review of Systems Constitutional: yes: alert Ears/Nose/Throat: Yes: no symptom reported Eyes: Yes: no symptom reported Pulmonary: Yes no symptom reported Cardiovascular: Yes no symptom reported Gastrointestional: Yes: no symptom reported Genitourinary: Yes: no symptom reported Musculoskeletal: Yes: no symptom reported Skin: Yes no symptom reported Psychiatric/Neurological: Yes: no symptom reported Physical Exam General Appearance: no apparent distress Skin: warm Respiratory: bilateral CTA Heart: S1S2 Abdomen: soft, bowel sounds present Genitourinary: bladder flat Extremities: pulses present Neurology: alert Musculoskeletal: Weakness Assessment Assessment IMP HYPONATREMIA-RESOLVED [id number] ACUTE HYPOXIC RESP FAILURE COVID 19 PNEUMONIA HX OF LUNG CA- S/P R LOWER LOBECTOMY AND CHEMO PANCYTOPENIA PLAN NA LEVEL WNL NOW WILL SIGN OFF FIFI RANDOLPH MD Mar 24, 2020 11:57
--- NOTE | 2020-03-24 13:16 | NUR ---
SS following up with discharge planning. SS reviewed pt chart and discussed with pt RN. Pt is currently requiring oxygen at five liters nasal canula. COVID19 positive. Peg tube in place. COVID19 positive. Pt on IV Zosyn. PT/OT ordered. SS met with pt in room to discuss discharge planning and rehabilitation. Per RN, pt is is very weak. Pt reported that he wants to return to home with [facility]. Pt reported that he has an appointment at [facility] on 04/11/2020. SS discussed concerns with weakness and potential need for rehabilitation. Pt reported that he does not want to go and has support at home. SS contacted pt's spouse and discussed discharge planning. Pt's spouse reported that she is his only support at home and she is still testing positive for COVID19 and just broke her ankle. Pt's spouse agreeable that pt needs to go to rehabilitation. She reported that she will be unsuccessful caring for him at home unless he gets stronger. Pt's spouse agreeable to referral to [facility], ; fax [phone], once PT/OT evaluations have been done. She reported that she will discuss with pt. SS will continue to follow for discharge planning.
[2020-03-24 13:44] LABS: BILIRUBIN,URINE NEGATIVE (NEG); CLARITY,URINE CLEAR; COLOR,URINE YELLOW; NITRITE,URINE NEGATIVE (NEG); PH,URINE 5.5 (<5.0-8.0); PROTEIN,URINE NEGATIVE (NEG-TRACE)
[2020-03-24 13:57] LABS: BACTERIA,URINE 0 /HPF (0-FEW); RBC,URINE 0 /HPF (0-2)
[2020-03-24 15:00] VITALS: BP 125/52
[2020-03-24] MEDS: SENNA LEAF EXTRACT 528 MG/15 ML ORAL SYRUP. PEG SCH (19:06)
[2020-03-24 19:56] VITALS: BP 85/42
[2020-03-24] MEDS: EZETIMIBE 10 MG TABLET. PO SCH (20:20)
[2020-03-24] MEDS: CILOSTAZOL 50 MG TABLET. PEG SCH (20:21)
[2020-03-24] MEDS: traZODone 50 MG TABLET. PEG SCH (20:21)
[2020-03-24] MEDS: ATORVASTATIN CALCIUM 20 MG TABLET PEG SCH (20:21)
[2020-03-24 22:24] VITALS: BP 110/67
[2020-03-25] MEDS: ACETAMINOPHEN 500 MG TABLET PO PRN ×2 (01:11→08:29)
[2020-03-25 03:00] VITALS: BP 110/67
[2020-03-25] MEDS: PIPERACILLIN/TAZOBACTAM 3.375 GM in IV NORMAL SALINE 50ML 50 ML IV SCH ×2 (05:18→13:29)
[2020-03-25] MEDS: IV NORMAL SALINE 1000ML BAG 1,000 ML IV SCH (05:19)
[2020-03-25 07:00] VITALS: BP 91/43
[2020-03-25] MEDS: ACYCLOVIR 200 MG CAPSULE. PEG SCH (08:29)
[2020-03-25] MEDS: DEXAMETHASONE 4 MG TABLET PEG SCH (08:29)
[2020-03-25] MEDS: ASPIRIN CHEWABLE 81 MG TABLET. PEG SCH (08:30)
[2020-03-25] MEDS: MAGNESIUM OXIDE 400 MG TABLET PEG SCH (08:31)
[2020-03-25] MEDS: ASCORBIC ACID 500 MG TABLET PEG SCH (08:33)
--- NOTE | 2020-03-25 09:30 | PDOC ---
PULMONARY PROGRESS NOTES DATE: 03/25/20 TIME: 09:28 Subjective Patient is resting on 7 L nasal cannula Afebrile Overnight concerns from nursing Vitals Vital Signs Date Time Temp Pulse Resp B/P (MAP) Pulse Ox O2 Delivery O2 Flow Rate FiO2 03/25/20 07:00 95.8 100 20 91/43 (59) 91 Nasal Cannula 5.0 95.8 Comments Patient is seen during , visual exam performed On nasal cannula oxygen Regular rate and rhythm No obvious edema or rash No respiratory distress Lungs: Clear Labs Laboratory Tests Test 03/24/20 06:52 03/24/20 13:35 Sodium Level 140 mmol/L (136-145) Potassium Level 3.9 mmol/L (3.5-5.1) Chloride Level 108 mmol/L (98-107) Carbon Dioxide Level 26 mmol/L (21-32) Anion Gap 6 (6-14) Blood Urea Nitrogen 31 mg/dL (8-26) Creatinine 0.8 mg/dL (0.7-1.3) Estimated GFR (Cockcroft-Gault) 91.7 Glucose Level 80 mg/dL (70-99) Calcium Level 8.8 mg/dL (8.5-10.1) Phosphorus Level 3.1 mg/dL (2.6-4.7) Magnesium Level 2.2 mg/dL (1.8-2.4) Urine Collection Type Unknown Urine Color Yellow Urine Clarity Clear Urine pH 5.5 (<5.0-8.0) Urine Specific [place] 1.025 (1.000-1.030) Urine Protein Negative mg/dL (NEG-TRACE) Urine Glucose (UA) Negative mg/dL (NEG) Urine Ketones (Stick) Negative mg/dL (NEG) Urine Blood Negative (NEG) Urine Nitrite Negative (NEG) Urine Bilirubin Negative (NEG) Urine Urobilinogen Dipstick 2.0 mg/dL (0.2 mg/dL) Urine Leukocyte Esterase Negative (NEG) Urine RBC 0 /HPF (0-2) Urine WBC 1-4 /HPF (0-4) Urine Squamous Epithelial Cells Occ /LPF Urine Bacteria 0 /HPF (0-FEW) Urine Mucus Slight /LPF Laboratory Tests Test 03/24/20 13:35 Urine Collection Type Unknown Urine Color Yellow Urine Clarity Clear Urine pH 5.5 (<5.0-8.0) Urine Specific [place] 1.025 (1.000-1.030) Urine Protein Negative mg/dL (NEG-TRACE) Urine Glucose (UA) Negative mg/dL (NEG) Urine Ketones (Stick) Negative mg/dL (NEG) Urine Blood Negative (NEG) Urine Nitrite Negative (NEG) Urine Bilirubin Negative (NEG) Urine Urobilinogen Dipstick 2.0 mg/dL (0.2 mg/dL) Urine Leukocyte Esterase Negative (NEG) Urine RBC 0 /HPF (0-2) Urine WBC 1-4 /HPF (0-4) Urine Squamous Epithelial Cells Occ /LPF Urine Bacteria 0 /HPF (0-FEW) Urine Mucus Slight /LPF Medications Active Scripts Medications Dose Route/Sig Max Daily Dose Days Date Category Acyclovir 800 Mg Tablet 800 Mg PEG Q12HR 03/22/20 Reported Zofran (Ondansetron Hcl) 4 Mg Tablet 4 Mg PEG PRN Q4HRS PRN 03/22/20 Reported Zetia (Ezetimibe) 10 Mg Tablet 10 Mg PEG QHS 03/22/20 Reported Ascorbic Acid 500 Mg Tablet Unknown Dose PEG BID 03/22/20 Reported Vitamin D3 (Cholecalciferol (Vitamin D3)) 10 Mcg Capsule Unknown Dose PEG DAILY 03/22/20 Reported Trazodone Hcl 50 Mg Tablet 25 Mg PEG HS 03/22/20 Reported Senna (Sennosides) 8.8 Mg/5 Ml Syrup 10 Ml PEG QHS 30 03/22/20 Reported Robaxin-750 (Methocarbamol) 750 Mg Tablet 750 Mg PEG PRN Q4HRS PRN 03/22/20 Reported Metoprolol Tartrate 25 Mg Tablet 12.5 Mg PEG BID 03/22/20 Reported Magnesium (Magnesium Oxide) 250 Mg Tablet 250 Mg PEG BID 03/22/20 Reported Atorvastatin Calcium 20 Mg Tablet 20 Mg PEG HS 03/22/20 Reported Decadron (Dexamethasone) 6 Mg Tablet 6 Mg PEG DAILY 10 03/22/20 Reported Cilostazol 100 Mg Tablet 100 Mg PEG QHS 03/22/20 Reported Cardura (Doxazosin Mesylate) 4 Mg Tablet 4 Mg PEG DAILY 03/22/20 Reported Aspirin 81 Mg Tab.chew 81 Mg PEG DAILY 03/22/20 Reported Proair Hfa Inhaler (Albuterol Sulfate) 8.5 Gm Hfa.aer.ad 2 Puff IH PRN Q4-6HRS PRN 21 03/22/20 Reported Acetaminophen 500 Mg Tablet 500 Mg PEG PRN Q6HRS PRN 03/22/20 Reported Comments CTA IMPRESSION: No evidence of pulmonary embolus. COPD. Diffuse mild patchy groundglass infiltrates bilaterally. Impression . IMPRESSION: 1. Acute hypoxic respiratory failure secondary to multifactorial etiologies including COVID-19 pneumonia and underlying chronic obstructive pulmonary disease. 2. History of lung cancer diagnosed in 2007 per patient's history. Treated with a right lower lobectomy and chemo. Apparently, he is also scheduled to have chemo next month at . No obvious tumor seen on the CT chest. He does have hoarseness and possibility of vocal cord paralysis is not excluded. 3. Anemia and thrombocytopenia. 4. Prerenal azotemia. 5. Severe protein-calorie malnutrition. Plan . RECOMMENDATIONS: Continue present oxygen with gradual wean to keep sats 92 and above, currently on 7 L nasal cannula Empiric antibiotic, Zosyn. Continue with steroids for COVID, will need full 10-day course Bronchodilators. Symptomatic treatment of cough Social work following for DC planning, being evaluated for rehab DVT/GI prophylaxis Physical therapy/Occupational Therapy Discussed with SEVERIANO HASKINS MD Mar 25, 2020 09:30
[2020-03-25 11:00] VITALS: BP 100/47
--- NOTE | 2020-03-25 11:31 | PDOC ---
[employer] PROGRESS NOTE Date of Service DOS: DATE: 03/25/20 TIME: 11:26 Chief Complaint Chief Complaint CC: Shortness of breath Covid Positive History of Present Illness History of Present Illness 03/24/2020 -Patient seen and examined -WILEY RN -Chart reviewed 03/25/2020 -Patient seen and examined. -Wiley RN. 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 -No growth noted on blood culture (2 day prelim) - has Covid and lower extremity fracture at home -PT/OT saw pt last night, sending referral to [facility] this morning -Chart reviewed Vitals/I&O Vitals/I&O: Vital Signs Date Time Temp Pulse Resp B/P (MAP) Pulse Ox O2 Delivery O2 Flow Rate FiO2 03/25/20 07:00 95.8 100 20 91/43 (59) 91 Nasal Cannula 5.0 95.8 I & O 03/24/20 03/24/20 03/25/20 15:00 23:00 07:00 Intake Total 482 ml 1461 ml 100 ml Output Total 200 ml 250 ml Balance 282 ml 1211 ml 100 ml Physical Exam General: Alert, Oriented X3 Heart: Regular rate Lungs: Clear Abdomen: Normal bowel sounds, Soft, No tenderness, No hepatosplenomegaly Extremities: No clubbing, No cyanosis, No edema Skin: No rashes, No significant lesion Labs Labs: Laboratory Tests Test 03/24/20 13:35 Urine Collection Type Unknown Urine Color Yellow Urine Clarity Clear Urine pH 5.5 (<5.0-8.0) Urine Specific [place] 1.025 (1.000-1.030) Urine Protein Negative mg/dL (NEG-TRACE) Urine Glucose (UA) Negative mg/dL (NEG) Urine Ketones (Stick) Negative mg/dL (NEG) Urine Blood Negative (NEG) Urine Nitrite Negative (NEG) Urine Bilirubin Negative (NEG) Urine Urobilinogen Dipstick 2.0 mg/dL (0.2 mg/dL) Urine Leukocyte Esterase Negative (NEG) Urine RBC 0 /HPF (0-2) Urine WBC 1-4 /HPF (0-4) Urine Squamous Epithelial Cells Occ /LPF Urine Bacteria 0 /HPF (0-FEW) Urine Mucus Slight /LPF Review of Systems Review of Systems: Denies CP. Denies headache. Assessment and Plan Assessmemt and Plan Problems Medical Problems: (1) COVID-19 Status: Acute (2) Hypoxia Status: Acute (3) Pneumonia Status: Acute 03/25/2020 Covid-19 positive, SOB, hypoxia, pneumonia Plan 1 Covid protocol 2 IV zosyn 3 Steroids 4 Oxygen via NC 5 Not using remdesivir, given at [facility] already 6 Home meds 7 DVT prophylaxis 8 Probable d/c to [facility] in the next day or two Comment Review of Relevant I have reviewed the following items stephie (where applicable) has been applied. Justifications for Admission Other Justification CRISTOFER HARRIS III DO Mar 25, 2020 11:31
--- NOTE | 2020-03-25 12:23 | SNU/HH DC ---
DISCHARGE ORDERS DISCHARGE INFORMATION: FINAL DIAGNOSIS Problems Medical Problems: (1) COVID-19 Status: Acute (2) Hypoxia Status: Acute (3) Pneumonia Status: Acute CONDITION ON DISCHARGE: Stable CODE STATUS: Code Status: Full SHELTER: SNF STAY <30 DAYS: Yes HOSPICE: HOSPICE: No HOSPICE EVAL & TREAT: No LTAC: ADMIT TO LTAC: No POST DISCHARGE ORDERS: ACTIVITY ORDERS: Bedrest today DIET AFTER DISCHARGE: Resume previous PEG feeds TREATMENT/EQUIPMENT ORDERS: Physical Therapy For: Evalulation/Treatment Occupational Therapy For: Evaluation/Treatment DISCHARGE MEDICATIONS: Home Meds Reported Medications Acyclovir (ACYCLOVIR) 800 Mg Tablet, 800 MG PEG Q12HR for , TAB 03/22/20 Ondansetron Hcl (ZOFRAN) 4 Mg Tablet, 4 MG PEG PRN Q4HRS PRN for NAUSEA/VOMITING, TAB 03/22/20 Ezetimibe (ZETIA) 10 Mg Tablet, 10 MG PEG QHS for , TAB 03/22/20 Ascorbic Acid (ASCORBIC ACID) 500 Mg Tablet, PEG BID for , TAB 03/22/20 Cholecalciferol (Vitamin D3) (Vitamin D3) 10 Mcg Capsule, PEG DAILY for , CAP 03/22/20 Trazodone Hcl (TRAZODONE HCL) 50 Mg Tablet, 25 MG PEG HS for DEPRESSION, TAB 03/22/20 Sennosides (SENNA) 8.8 Mg/5 Ml Syrup, 10 ML PEG QHS for for 30 Days, #300 ML 0 Refills 03/22/20 Methocarbamol (ROBAXIN-750) 750 Mg Tablet, 750 MG PEG PRN Q4HRS PRN for PAIN, TAB 03/22/20 Metoprolol Tartrate (METOPROLOL TARTRATE) 25 Mg Tablet, 12.5 MG PEG BID for FOR HYPERTENSION, #60 TAB 0 Refills 03/22/20 Magnesium Oxide (MAGNESIUM) 250 Mg Tablet, 250 MG PEG BID for SUPPLEMENT, TAB 03/22/20 Atorvastatin Calcium (ATORVASTATIN CALCIUM) 20 Mg Tablet, 20 MG PEG HS for FOR CHOLESTEROL, #30 TAB 0 Refills 03/22/20 Dexamethasone (Decadron) 6 Mg Tablet, 6 MG PEG DAILY for for 10 Days, #10 TAB 03/22/20 Cilostazol (CILOSTAZOL) 100 Mg Tablet, 100 MG PEG QHS for , TAB 03/22/20 Doxazosin Mesylate (CARDURA) 4 Mg Tablet, 4 MG PEG DAILY for , TAB 03/22/20 Aspirin (ASPIRIN) 81 Mg Tab.chew, 81 MG PEG DAILY for , TAB.CHEW 03/22/20 Albuterol Sulfate (PROAIR HFA INHALER) 8.5 Gm Hfa.aer.ad, 2 PUFF IH PRN Q4-6HRS PRN for wheezing for 21 Days, #1 INHALER 0 Refills 03/22/20 Acetaminophen (ACETAMINOPHEN) 500 Mg Tablet, 500 MG PEG PRN Q6HRS PRN for PAIN, TAB 03/22/20 CRISTOFER HARRIS III DO Mar 25, 2020 12:23
[2020-03-25] MEDS: ENOXAPARIN 40 MG/0.4 ML SYRINGE. SQ SCH (13:29)
--- NOTE | 2020-03-25 13:45 | DS ---
DATE OF DISCHARGE: 03/25/2020 ADMISSION DIAGNOSES: 1. Respiratory failure. 2. COVID-19. 3. Leukocytosis. 4. Anemia. 5. Thrombocytopenia. 6. Hyponatremia. 7. Azotemia. 8. Coagulopathy. 9. Hypoxia. 10. History of PEG tube. 11. History of B-cell lymphoma DISCHARGE DIAGNOSIS: 1. Resolving COVID-19. 2. History of B-cell lymphoma. 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 Basically, he presented from home because his COVID-19 basically was worsening. He had electrolyte disturbance and thrombocytopenia, hyponatremia, azotemia. The coagulopathy, we think, was secondary to his COVID. He was hypoxic. We consulted Oncology. They did treat him with steroids. He does have a history of B-cell lymphoma as well. We consulted Pulmonary Medicine who agreed with COVID protocol. Dr. Kumar of the Nephrology service agreed with slow IV hydration and we checked urine electrolytes and a TSH. Overall, the patient is doing better. This morning, I saw and examined him. The plan is to get him to intermediate later today. DISPOSITION: Jail at [facility] at the [facility]. ACTIVITY: As tolerated. DIET: PEG feeds. MEDICATIONS: Please see the MRAD. TOTAL TIME: 37 minutes. CRISTOFER HARRIS DO DR: RAMIRZE/edith JOB#: [id number] / [id number]
[2020-03-25 15:00] VITALS: BP 97/44
--- NOTE | 2020-03-25 15:50 | NUR ---
Discharge Note: PANCHO CHOPRA [facility] Discharge instructions and discharge home medications reviewed with Other facility and a copy given. All questions have been answered and understanding verbalized. The following instructions and handouts were given: discharge instructions, med list, malnutrition info, covid info, rx for augmentin. Discontinued lines and drains: intact, kept picc for chemo use. [facility] with transportation via Wheelchair at 1550. Discharge wound pics taken & placed in chart. Report called & given to Jayshree arredondo [facility].
== END 2020-03-25 15:50 | DRG 177 ==
LOC: ER 14:50 → ED HOLD 16:10 → 2 SOUTH 21:25
PROVIDERS: ADMIT Family Medicine; ATTEND Family Medicine
DX: U07.1 COVID-19 (principal); J96.01 Acute respiratory failure with hypoxia; E43 Unspecified severe protein-calorie malnutrition; J12.82 Pneumonia due to coronavirus disease 2019; C34.90 Malignant neoplasm of unspecified part of unspecified bronchus or lung; C83.30 Diffuse large B-cell lymphoma, unspecified site; D61.818 Other pancytopenia; D68.9 Coagulation defect, unspecified; J44.0 Chronic obstructive pulmonary disease with (acute) lower respiratory infection; N17.9 Acute kidney failure, unspecified; Z68.1 Body mass index [BMI] 19.9 or less, adult; E87.1 Hypo-osmolality and hyponatremia; E11.9 Type 2 diabetes mellitus without complications; E78.00 Pure hypercholesterolemia, unspecified; E78.5 Hyperlipidemia, unspecified; I10 Essential (primary) hypertension; N40.0 Benign prostatic hyperplasia without lower urinary tract symptoms; Z83.3 Family history of diabetes mellitus; Z85.118 Personal history of other malignant neoplasm of bronchus and lung; Z87.891 Personal history of nicotine dependence; Z92.21 Personal history of antineoplastic chemotherapy; Z93.1 Gastrostomy status; G89.29 Other chronic pain; K21.9 Gastro-esophageal reflux disease without esophagitis; M19.90 Unspecified osteoarthritis, unspecified site; Z88.8 Allergy status to other drugs, medicaments and biological substances; Z79.899 Other long term (current) drug therapy; D69.6 Thrombocytopenia, unspecified
CPT/HCPCS: 36415; 36600; 71045; 71275; 73502; 80048; 80053; 81001; 82805; 83605; 83735; 83880; 83930; 83935; 84100; 84484; 85007; 85025; 85379; 87040; 87426; 93005; 96361; 96365; 96375; 96376; 99285; J1650; J2543; J2930; J3010; J7030; J7040; Q9967; 97110-GP; 97530-GO; G0378